=== PATIENT | male | born 1940 | race Caucasian/White ===

== ENCOUNTER → 2017-04-09 | Outpatient (CLI) | payer OTHER ==
[2017-04-09 13:17] LABS: ALT/SGPT 25 U/L (12-78); BLOOD UREA NITROGEN 12 mg/dl (7-18); BUN/CREATININE RATIO 14.2 (10-20); CALCIUM 8.5 mg/dl (8.5-10.1); CARBON DIOXIDE 26 mmol/L (21-32); CHLORIDE 108 mmol/L (98-107); CREATININE 0.88 mg/dl (0.60-1.40); GLUCOSE 91 mg/dl (70-99); POTASSIUM 3.8 mmol/L (3.5-5.1); SODIUM 139 mmol/L (136-145)
[2017-04-09 13:21] LABS: CHOLESTEROL 164 mg/dl (0-200); CHOLESTEROL/HDL RATIO 3.3; HDL CHOLESTEROL 50 mg/dl; LDL CHOLESTEROL CALCULATED 101 mg/dl; TRIGLYCERIDES 66 mg/dl (0-150); VERY LOW DENSITY LIPOPROT CALC 13 mg/dl
== END | disposition home or self-care (01) ==
LOC: C.LABMFLN 10:11
PROVIDERS: ATTEND Family Medicine
DX: I10 Essential (primary) hypertension (principal); Z13.220 Encounter for screening for lipoid disorders

== ENCOUNTER → 2017-05-11 | Outpatient (CLI) | payer OTHER | END | disposition home or self-care (01) | LOC: C.PATHSPEC 12:54 | PROVIDERS: ATTEND Dermatology | DX: C44.619 Basal cell carcinoma of skin of left upper limb, including shoulder (principal); C44.519 Basal cell carcinoma of skin of other part of trunk ==

== ENCOUNTER → 2017-05-11 | Outpatient (CLI) | payer OTHER ==
--- NOTE | 2017-05-11 18:32 | DIAGNOSTIC IMAGING REPORT ---
CHEST 2 VIEWS ROUTINE CLINICAL HISTORY: Possible palpable enlarged lymph node left side of neck. COMPARISON STUDY: No previous studies for comparison. FINDINGS: Lung volumes are normal. There is no pneumothorax. There may be trace bilateral pleural effusions with blunting of the posterior costophrenic angles. A few calcified pulmonary nodules are present. These suggest a prior granulomatous process. Cardiac size is normal. There is no consolidation to suggest pneumonia. Mediastinal contours are unremarkable. IMPRESSION: 1. No acute cardiopulmonary findings. 2. Suspected trace bilateral pleural effusions. Electronically signed by: Shamar Colin M.D. 05/11/2017 6:31 PM Dictated Date/Time: 05/11/2017 6:29 PM
== END | disposition home or self-care (01) ==
LOC: C.LAB 17:54
PROVIDERS: ATTEND Dermatology
DX: R59.9 Enlarged lymph nodes, unspecified (principal)

== ENCOUNTER → 2017-05-28 | Outpatient (CLI) | payer OTHER ==
[~2017-05-28] MED LIST: ASPI81TA28 PO; AUG0.05C12 TOP; CEPH500C2 PO; ENAL10TA88 PO; ENAL5TAB83 PO; FINA5TAB PO; ISOS30TA35 PO; MULTTAB58 PO; NTRGSL/4 UT; OMEG10007 PO; OXYC-57 PO; RST15 PO; SIMV40TA2 PO; TERA1CAP63 PO
[2017-05-28 12:48] LABS: HEMATOCRIT 33.6 % (42-52); HEMOGLOBIN 11.4 g/dL (14.0-18.0)
[2017-05-28 13:27] LABS: BLOOD UREA NITROGEN 15 mg/dl (7-18); CARBON DIOXIDE 26 mmol/L (21-32); CREATININE 0.79 mg/dl (0.60-1.40); GLUCOSE 91 mg/dl (70-99); POTASSIUM 3.6 mmol/L (3.5-5.1); SODIUM 137 mmol/L (136-145)
[2017-05-28 13:32] LABS: LDL CHOLESTEROL (DIRECT) 104 mg/dl
== END | disposition home or self-care (01) ==
LOC: C.LABMFLN 08:17
PROVIDERS: ATTEND Family Medicine
DX: I20.9 Angina pectoris, unspecified (principal); I11.0 Hypertensive heart disease with heart failure; R06.09 Other forms of dyspnea; J90 Pleural effusion, not elsewhere classified

== ENCOUNTER → 2017-06-08 | Outpatient (CLI) | payer OTHER ==
--- NOTE | 2017-06-08 13:14 | DIAGNOSTIC IMAGING REPORT ---
NECK ULTRASOUND CLINICAL HISTORY: Malignant melanoma. COMPARISON STUDY: None. TECHNIQUE: Sonography of the neck at site of palpable abnormality was performed. FINDINGS: Sonography of the left neck at site of palpable abnormality demonstrates a hypoechoic 1.1 x 1 x 1 cm mass which is solid and taller than wide with irregular margins. This contains color flow. IMPRESSION: 1.1 cm hypoechoic left cervical mass which represents the palpable abnormality. The sonographic appearance is worrisome for a neoplastic process, particularly given the clinical history, and ultrasound-guided fine needle aspiration could be performed if indicated. Electronically signed by: Shamar Colin M.D. 06/08/2017 1:13 PM Dictated Date/Time: 06/08/2017 1:08 PM
--- NOTE | 2017-06-08 13:22 | DIAGNOSTIC IMAGING REPORT ---
CT OF THE CHEST WITHOUT IV CONTRAST CLINICAL HISTORY: ARTERIOSCLEROTIC CAD, SUPRACLAVICULAR ADENOPATHY COMPARISON STUDY: Chest radiograph May 11, 2017. CT DOSE: 387.28 mGycm TECHNIQUE: Axial images of the chest were obtained without IV contrast. Images were reviewed in the axial, sagittal, and coronal planes. IV contrast was not administered for this examination. A dose lowering technique was utilized adhering to the principles of ALARA. FINDINGS: No supraclavicular adenopathy is identified on this exam although only the inferior most aspect of the neck was imaged on this exam. There is no axillary, mediastinal or hilar lymphadenopathy. The heart is moderately enlarged. There is extensive coronary artery calcification. There is no pericardial effusion. There is trace pericardial fluid. There are trace bilateral pleural effusions. There is no pneumothorax. There is no consolidation to suggest pneumonia. There are multiple calcified granulomas within the lungs. There are several small noncalcified pulmonary nodules, including a 3 mm left upper lobe nodule shown on image 95 of 296 and a 5 mm left upper lobe nodule shown image 143. A 5 mm left lower lobe subpleural nodule on image 219 is noted. These nodules are likely benign. Bony thorax is unremarkable. Imaged portions of the upper abdomen partially visualize a 6 cm lesion within the upper pole the left kidney. This measures water attenuation and favors a cyst however is is suboptimally assessed on this unenhanced exam. Note is made of a 1.8 cm water attenuation subcutaneous abnormality of the upper back. IMPRESSION: 1. Trace bilateral pleural effusions. No CT evidence of interstitial pulmonary edema. 2. Several small indeterminate noncalcified pulmonary nodules. These could be followed according to the attached recommendations. 3. Moderate cardiomegaly and extensive coronary artery calcification. 4. Partially visualized water attenuation left renal lesion. Although suboptimally assessed on this exam, this favors a cyst. 5. 1.8 cm water attenuation subcutaneous abnormality of the upper back. This favors a sebaceous cyst although postsurgical change could appear similar. SOLID NODULES Solitary nodule size: <6 mm * low risk patients: no follow-up needed * high risk patients: optional CT at 12 months Solitary nodule size: 6-8 mm * low risk patients: follow-up at 6-12 months, then consider further follow-up at 18-24 months * high risk patients: initial follow-up CT at 6-12 months and then at 18-24 months if no change Solitary nodule size: >8 mm * either low or high risk patients - consider follow-up CT at 3 months, and/or CT-PET, and/or biopsy Multiple nodules size: <6 mm * low risk patients: no routine follow-up * high risk patients: optional CT at 12 months Multiple nodules size: 6-8 mm * low risk patients: follow-up at 3-6 months, then consider further follow-up at 18-24 months * high risk patients: follow-up at 3-6 months, then at 18-24 months if no change Multiple nodules size: >8 mm * low risk patients: follow-up at 3-6 months, then consider further follow-up at 18-24 months * high risk patients: follow-up at 3-6 months, then at 18-24 months if no change Note: newly detected indeterminate nodule in persons 35 years of age or older. * low risk patients: minimal or absent history of smoking and/or other known risk factors * high risk patients: history of smoking or of other known risk factors (e.g. first degree relative with lung cancer, or exposure to asbestos, radon, uranium) * if a nodule up to 8 mm is partly solid or is ground glass further follow-up is required after 24 months to exclude possible slow growing adenocarcinoma (RASHEED) Electronically signed by: Shamar Colin M.D. 06/08/2017 1:21 PM Dictated Date/Time: 06/08/2017 11:44 AM
--- NOTE | 2017-06-09 08:11 | EXERCISE STRESS ECHO ---
*NOTICE TO RECEIVING REPUBLICAN AGENCY This information is strictly Confidential and protected under [place] law. [place] law prohibits you from making any further disclosure of this information unless further disclosure is expressly permitted by the written consent of the person to whom it pertains or is authorized by law. A general authorization for the release of medical or other information is not sufficient for this purpose. Hospital accepts no responsibility if the information is made available to any other person, INCLUDING THE PATIENT. Interpretation Summary * Name: ZENAIDA HAMILTON Study Date: 06/08/2017 11:21 AM BP: 103/73 mmHg * Patient Location: [facility] HR: 47 * : 1940 (M/d/yyyy) Gender: Male Height: 57 in * Age: 77 yrs Ethnicity: CA Weight: 177 lb * Ordering Physician: Cristi Harrington * Referring Physician: Padilla Orozco * Performed By: Regi Hector RCS * * Reason For Study: ANGINA * BSA: 1.7 m2 * -- Conclusions -- * Stress Echo: * 1. Negative stress echo for ischemia at 95 % MPHR. * 2. Negative exercise ECG for ischemia at 95 % MPHR. * 3. Appropriate blood pressure response to exercise. * 4. No arrhythmia. * 5. Study terminated due to fatigue. No chest pain reported. * 6. Good exercise tolerance. * Echo: * 1. Normal left ventricular size with low-normal systolic function. EF 50-55%. Hypokinesis of the inferolateral wall. Mild concentric left ventricular hypertrophy. Type 1 diastolic dysfunction. * 2. The left atrium is mildly dilated. * 3. There is mild mitral regurgitation. * 4. Normal estimated right ventricular systolic pressure; 22mmHg. Procedure Details * ECHOEX, CPT #[id number] * ECHO COLOR FLOW, CPT #[id number] * ECHO DOPPLER, CPT #[id number] Left Ventricle * Normal left ventricular size with low-normal systolic function. EF 50-55%. Hypokinesis of the inferolateral wall. Mild concentric left ventricular hypertrophy. Type 1 diastolic dysfunction. * Following exercise, inferolateral wall appears hypokinetic, similar to baseline. Other wall segments appear to augment appropriately. LV systolic function becomes more hyperdynamic with smaller LV cavity. Right Ventricle * The right ventricle is normal in size and function. * The right ventricular systolic function is normal as assessed by tricuspid annular plane systolic excursion (TAPSE) (normal >1.5 cm). Atria * The left atrium is mildly dilated. * Right atrial size is normal. * There is no evidence of atrial septal defect, but resolution does not allow assessment for a patent foramen ovale. Mitral Valve * The mitral valve leaflets appear normal. There is no evidence of stenosis, fluttering, or prolapse. * There is mild mitral regurgitation. Tricuspid Valve * The tricuspid valve is not well visualized, but is grossly normal. * There is no tricuspid stenosis. * There is trace tricuspid regurgitation. Aortic Valve * The aortic valve is trileaflet. * No hemodynamically significant valvular aortic stenosis. * Trace aortic regurgitation. Pulmonic Valve * The pulmonary valve is inadequately visualized, but the Doppler data is adequate for interpretation. * Trace pulmonic valvular regurgitation. Great Vessels * The aortic root is normal size. * Ascending aorta of normal dimension * Normal pulmonary venous flow pattern. Normal IVC size and inspiratory collapse. Pericardium * Trace pericardial effusion. Stress Parameters * Sinus bradycardia at 59 bpm. PVCs in bigeminal pattern. Septal infarct. * Stress ECG: No ST changes. No arrhythmias. * Minor ST elevation in leads V1 and V2, with Q-waves present at baseline. * The stress portion of this study was personally supervised by the undersigned interpreting physician. * Rest heart rate was '47' BPM. * Rest blood pressure was '103/73' * Maximum heart rate achieved was 136 bpm. * Maximum heart rate was 95 % of maximum age-predicted heart rate. * Maximum blood pressure was '150/96' * Total exercise time was '09:23' * Maximum exercise MET level achieved was '10.70' METS * Maximum treadmill speed was '4.20' miles per hour. * Maximum treadmill elevation was '16.00'% grade. * Normal blood pressure response to exercise. * Exercise was terminated due to 'fatigue' MMode 2D Measurements and Calculations IVSd 1.3 cm IVSs 1.6 cm LVIDd 4.9 cm LVIDs 3.4 cm LVPWd 1.2 cm LVPWs 1.6 cm IVS/LVPW 1.1 FS 31.7 % EDV(Teich) 114.9 ml ESV(Teich) 46.5 ml EF(Teich) 59.5 % EDV(cubed) 120.5 ml ESV(cubed) 38.3 ml EF(cubed) 68.2 % % IVS thick 22.1 % % LVPW thick 24.8 % LV mass(C)d 250.6 grams LV mass(C)dI 146.8 grams/m\S\2 LV mass(C)s 199.9 grams LV mass(C)sI 117.1 grams/m\S\2 SV(Teich) 68.4 ml SI(Teich) 40.1 ml/m\S\2 SV(cubed) 82.1 ml SI(cubed) 48.1 ml/m\S\2 Ao root diam 3.3 cm Ao root area 8.8 cm\S\2 ACS 1.9 cm LA dimension 4.5 cm asc Aorta Diam 3.0 cm LA/Ao 1.4 LVOT diam 2.1 cm LVOT area 3.4 cm\S\2 LVAd ap2 40.5 cm\S\2 LVLd ap2 8.7 cm EDV(MOD-sp2) 154.4 ml EDV(sp2-el) 159.4 ml LVAs ap2 25.9 cm\S\2 LVLs ap2 7.7 cm ESV(MOD-sp2) 73.5 ml ESV(sp2-el) 74.1 ml EF(MOD-sp2) 52.4 % EF(sp2-el) 53.5 % SV(MOD-sp2) 80.9 ml SI(MOD-sp2) 47.4 ml/m\S\2 SV(sp2-el) 85.2 ml SI(sp2-el) 49.9 ml/m\S\2 Doppler Measurements and Calculations MV E max delon 65.8 cm/sec MV A max delon 83.0 cm/sec MV E/A 0.79 MV P1/2t max delon 97.5 cm/sec MV P1/2t 78.7 msec MVA(P1/2t) 2.8 cm\S\2 MV dec slope 362.9 cm/sec\S\2 MV dec time 0.21 sec Ao V2 max 145.5 cm/sec Ao max PG 8.5 mmHg Ao max PG (full) 5.5 mmHg MAURISIO(V,A) 2.0 cm\S\2 MAURISIO(V,D) 2.0 cm\S\2 LV V1 max PG 2.9 mmHg LV V1 max 85.7 cm/sec MR max delon 547.0 cm/sec MR max PG 119.7 mmHg PA V2 max 109.6 cm/sec PA max PG 4.8 mmHg PI max delon 164.8 cm/sec PI max PG 10.9 mmHg PI dec slope 88.3 cm/sec\S\2 PI P1/2t 546.8 msec TR max delon 219.1 cm/sec RVSP(TR) 22.2 mmHg RAP systole 3.0 mmHg
== END | disposition home or self-care (01) ==
LOC: C.CPL 10:43
PROVIDERS: ATTEND Internal Medicine Cardiovascular Disease
DX: R59.0 Localized enlarged lymph nodes (principal); E78.5 Hyperlipidemia, unspecified; I25.110 Atherosclerotic heart disease of native coronary artery with unstable angina pectoris; C43.9 Malignant melanoma of skin, unspecified

== ENCOUNTER → 2017-06-16 | Outpatient (CLI) | payer OTHER ==
--- NOTE | 2017-06-16 15:07 | DIAGNOSTIC IMAGING REPORT ---
ULTRASOUND GUIDED FINE NEEDLE ASPIRATION AND CORE BIOPSY OF LEFT SUPRACLAVICULAR PALPABLE LESION CLINICAL HISTORY: Palpable left neck mass. COMPARISON STUDY: Neck ultrasound June 08, 2017. PROCEDURE: Sonography of the left neck demonstrated the palpable 1.1 cm hypoechoic irregular left supraclavicular lesion. This was targeted for biopsy. The risks, benefits and alternatives were discussed with the patient and informed written consent was obtained. The procedure was performed by Dr. Colin following a timeout. Skin was prepped and draped in sterile fashion and local anesthesia was achieved with 1% lidocaine. Under direct ultrasound guidance, 2 25-gauge fine needle aspirations were performed followed by a 22-gauge fine needle aspiration. One 18-gauge core biopsy was obtained. The core sample was only approximately 3 mm in length and therefore was submitted for cell block. Samples were deemed preliminarily adequate by pathology. The patient tolerated the procedure well and no immediate complications were evident. IMPRESSION: Ultrasound guided fine needle aspiration and core biopsy of 1.1 cm left supraclavicular mass. Electronically signed by: Shamar Colin M.D. 06/16/2017 3:05 PM Dictated Date/Time: 06/16/2017 3:02 PM
== END | disposition home or self-care (01) ==
LOC: C.ULTR 13:28
PROVIDERS: ATTEND Otolaryngology
DX: C77.0 Secondary and unspecified malignant neoplasm of lymph nodes of head, face and neck (principal)

== ENCOUNTER 2017-07-02 05:16 | Inpatient (IN) | payer OTHER ==
[2017-06-25 09:40] VITALS: Ht 170.2 cm; Wt 81.8 kg
--- NOTE | 2017-06-25 10:22 | PAT Medication Instructions ---
Service Date Jun 25, 2017. Current Home Medication List Aspirin (Aspirin Ec), 81 MG PO QPM Betamethasone Dipropionate Aug (Diprolene Af), 1 APPLN TOP BID Enalapril (Vasotec), 10 MG PO QAM Finasteride (Proscar), 5 MG PO QAM Isosorbide Mononitrate Ext Rel (Imdur Ext Rel), 1 TAB PO QAM Nitroglycerin (Nitrostat), 0.4 MG UT PRN PRN for chest pain Temazepam (Temazepam), 1 TAB PO HS Terazosin Hcl (Hytrin), 10 MG PO QPM Medication Instructions For Your Scheduled Surgery -Contact your surgeon and machine grainer for instructions for: Aspirin (Aspirin Ec), 81 MG PO QPM -Continue as directed: Nitroglycerin (Nitrostat), 0.4 MG UT PRN PRN for chest pain - Hold the following medications 24 hours prior to surgery: Betamethasone Dipropionate Aug (Diprolene Af), 1 APPLN TOP BID - Hold the following medications the morning of surgery: Enalapril (Vasotec), 10 MG PO QAM - Take the following medications the morning of surgery with a sip of water: Isosorbide Mononitrate Ext Rel (Imdur Ext Rel), 1 TAB PO QAM Finasteride (Proscar), 5 MG PO QAM - Take the following medications as scheduled the night before surgery: Terazosin Hcl (Hytrin), 10 MG PO QPM Temazepam (Temazepam), 1 TAB PO HS If you have any questions please call us at [phone] or [phone] or [phone]
[2017-06-25 12:19] LABS: BASO % 0.8 %; BASO ABS # 0.04 K/uL (0-0.2); EOS % 3.2 %; EOS ABS # 0.17 K/uL (0-0.5); HEMATOCRIT 33.5 % (42-52); HEMOGLOBIN 11.2 g/dL (14.0-18.0); LYMPH ABS # 1.33 K/uL (1.2-3.4); MEAN CELL VOLUME 85.9 fL (80-100); MEAN CORPUSCULAR HEMOGLOBIN 28.7 pg (25-34); MEAN CORPUSCULAR HGB CONC 33.4 g/dl (32-36); MEAN PLATELET VOLUME 10.2 fL (7.4-10.4); MONO ABS # 0.48 K/uL (0.11-0.59); NEUT ABS # 3.29 K/uL (1.4-6.5); PLATELET COUNT 237 K/uL (130-400); RED CELL DISTRIBUTION WIDTH CV 15.1 % (11.5-14.5); RED CELL DISTRIBUTION WIDTH SD 46.9 fL (36.4-46.3); WHITE BLOOD COUNT 5.31 K/uL (4.8-10.8)
--- NOTE | 2017-07-01 14:54 | History and Physical ---
History & Physical Date Jul 01, 2017. Chief Complaint A lump in the left neck History of Present Illness The patient is a 77 year old male with complaints of a long history of basal cell carcinoma of the left shoulder confirmed on biopsy with persistent ulceration for 3 years and now with a mass in the left lower posterior neck that showed metastatic basal cell carcinoma on needle biopsy Additional History Hepatic Disease: No Endocrine Disorder: No Kidney Disease: No Hypertension: Yes Heart Disease: No Bleeding Tendencies: No Infectious Diseases: No Allergies Coded Allergies: No Known Allergies (Unverified , 06/25/17) Home Medications Scheduled Aspirin (Aspirin Ec), 81 MG PO QPM Betamethasone Dipropionate Aug (Diprolene Af), 1 APPLN TOP BID Enalapril (Vasotec), 10 MG PO QAM Finasteride (Proscar), 5 MG PO QAM Isosorbide Mononitrate Ext Rel (Imdur Ext Rel), 1 TAB PO QAM Temazepam (Temazepam), 1 TAB PO HS Terazosin Hcl (Hytrin), 10 MG PO QPM Scheduled PRN Nitroglycerin (Nitrostat), 0.4 MG UT PRN PRN for chest pain Physical Examination Skin: warm/dry, no rash Eyes: normal inspection, EOMI, sclerae normal ENT: normal ENT inspection, pharynx normal Head: normocephalic, atraumatic Neck: supple, no adenopathy, trachea midline, + pertinent finding (1 cm semi- fixed mass left posterior inferior neck with a large 3 cm ulcerative lesion over the left shoulder) Respiratory/Chest: lungs clear, normal breath sounds, no respiratory distress Cardiovascular: regular rate, rhythm, no edema, no murmur Abdomen / GI: normal bowel sounds, non tender Back: normal inspection Extremities: normal inspection, normal range of motion Neurologic/Psych: no motor/sensory deficits, alert, normal reflexes, oriented x 3 Diagnosis Metastatic basal cell carcinoma from left shoulder to the left neck Plan of Treatment Excision of basal cell carcinoma with frozen section and left functional neck dissection with possible skin flap
[~2017-07-02] VITALS: Ht 170.2 cm; Wt 81.8 kg
[2017-07-02] VITALS (9 sets, daily range): BP systolic 134–161; BP diastolic 57–77; PULSE 51–83; TEMP 36.4–36.9; O2SAT 92–97
[~2017-07-02 05:16] MED LIST changes: -CEPH500C2 PO; -ENAL5TAB83 PO; -MULTTAB58 PO; -OMEG10007 PO; -OXYC-57 PO; -SIMV40TA2 PO
[2017-07-02] MEDS ORDERED: SIMV40TA2 PO (05:55)
[2017-07-02] MEDS ORDERED: CEFAZOLIN 2000MG IV PUSH 10 ML IV SCH (06:00)
[2017-07-02] MEDS ORDERED: LACTATED RINGER'S 1000ML 1,000 ML IV SCH (06:00)
[2017-07-02] MEDS ORDERED: MIDAZOLAM HCL 1 MG/ML 2ML VIAL ONE (07:02)
[2017-07-02] MEDS ORDERED: FENTANYL CITRATE INJ 50 MCG/1 ML 2 ML VIAL ONE ×3 (07:02→10:26)
--- NOTE | 2017-07-02 07:08 | History & Physical Bridge Note ---
H&P Re-Evaluation Bridge Note: I have examined the patient, reviewed the History & Physical and in the interval since the performance of the History & Physical I have noted the following changes of clinical significance: No changes noted
[2017-07-02] MEDS ORDERED: LIDO 2%/EPINEPHRINE 1:100000 20 ML VIAL INFIL ONE (07:16)
[2017-07-02] MEDS ORDERED: BACITRACIN OINT 15 GM TUBE ONE (07:16)
[2017-07-02] MEDS ORDERED: EpHEDrine SULFATE 50MG/5ML SYR ONE (08:05)
[2017-07-02] MEDS ORDERED: PHENYLEPHRINE 100MCG/ML 5ML SYR ONE ×2 (08:05→10:48)
[2017-07-02] MEDS ORDERED: LIDOCAINE HCL 2% 2 ML VIAL (20MG/ML) ONE (08:05)
[2017-07-02] MEDS ORDERED: PROPOFOL IV EMULSION 10 MG/ML 20 ML VIAL IV ONE (08:05)
[2017-07-02] MEDS ORDERED: NEOSTIGMINE METHYLSULFATE 5 MG/5 ML SYR ONE (08:05)
[2017-07-02] MEDS ORDERED: GLYCOPYRROLATE INJ 0.2 MG/ML VIAL ONE (08:05)
[2017-07-02] MEDS ORDERED: DEXAMETHASONE SOD INJ 4 MG/ML VIAL ONE (08:05)
[2017-07-02] MEDS ORDERED: ONDANSETRON INJ 2 MG/ML 2 ML VIAL ONE (08:05)
[2017-07-02] MEDS ORDERED: ROCURONIUM BROMIDE 10 MG/ML 5 ML VIAL IV ONE (08:05)
[2017-07-02] MEDS ORDERED: ONDANSETRON INJ 2 MG/ML 2 ML VIAL IV PRN ×2 (10:00→12:30)
[2017-07-02] MEDS ORDERED: FLUMAZENIL 0.1 MG/1 ML 10 ML VIAL IV PRN (10:00)
[2017-07-02] MEDS ORDERED: ATROPINE SULFATE 0.1 MG/ML 5ML SYR IV PRN (10:00)
[2017-07-02] MEDS ORDERED: EpHEDrine SULFATE INJ 50 MG/ML AMP IV PRN (10:00)
[2017-07-02] MEDS ORDERED: LABETALOL HCL IV 5 MG/ML 20ML IV PRN (10:00)
[2017-07-02] MEDS ORDERED: PROMETHAZINE HCL INJ 12.5 MG in SODIUM CHLORIDE 0.9% 50ML 50 ML IV PRN (10:00)
[2017-07-02] MEDS ORDERED: HYDROmorphone INJ 1 MG/ML SYR IV PRN (10:00)
[2017-07-02] MEDS ORDERED: NALOXONE HCL 0.4 MG/1 ML VIAL/CARP IV PRN (10:00)
[2017-07-02] MEDS ORDERED: CEFAZOLIN SOD 1 GM VIAL ONE (11:08)
--- NOTE | 2017-07-02 11:54 | [facility] Post Operative Brief Note ---
Immediate Operative Summary Operative Date Jul 02, 2017. Pre-Operative Diagnosis Metastatic basal cell carcinoma from left shoulder to left neck Post-Operative Diagnosis same as preop Procedure(s) Performed Excision Basal Cell Carcinoma Left Shoulder, Rotate Skin Flap, Left Functional Neck Dissection with Removal of Lump and Lymph Node of Left Neck Surgeon Dr. Florez Electrical Equipment Assembler Surgeon(s) none Estimated Blood Loss 15 ml Findings Consistent with Post-Op Diagnosis Specimens Frozen specimen 1- Basal cell carcinoma plus level 4 nodes- instructions to check margins. Sent from room at 1110 A: Level 1,2,3 nodes, left side B: Supraclavicular node, left side Drains 7mm Victorino Nettles Anesthesia Type General Complication(s) none Disposition Accompanied Pt To Recovery: yes Disposition: Recovery Room / PACU
[2017-07-02] MEDS ORDERED: MoRPHine SULFATE 4 MG/ML 1 ML CARP\\VIAL IV PRN (12:30)
[2017-07-02] MEDS ORDERED: ACETAMINOPHEN 325 MG TAB PO PRN (12:30)
[2017-07-02] MEDS ORDERED: MoRPHine SULFATE 2 MG/ML CARP IV PRN ×2 (12:30)
[2017-07-02] MEDS ORDERED: OXYCODONE/ACETAMINOPHEN 5-325 TAB PO PRN ×2 (12:30)
--- NOTE | 2017-07-02 12:33 | [facility] Operative Report ---
Operative Report Operative Date Jul 02, 2017. Pre-Operative Diagnosis Metastatic basal cell carcinoma from left shoulder to left neck Post-Operative Diagnosis same as preop Procedure(s) Performed Excision Basal Cell Carcinoma Left Shoulder, Rotate Skin Flap, Left Functional Neck Dissection with Removal of Lump and Lymph Node of Left Neck Surgeon Dr. Florez City Comptroller Surgeon(s) none Estimated Blood Loss 15 ml Findings Arm fixed node left neck, large ulceration left shoulder Specimens Frozen specimen 1- Basal cell carcinoma plus level 4 nodes- instructions to check margins. Sent from room at 1110 A: Level 1,2,3 nodes, left side B: Supraclavicular node, left side Drains 7mm Victorino Nettles Anesthesia Type General Complication(s) none Disposition yes Recovery Room / PACU Indications 77-year-old gentleman with over 3 year history of ulceration left shoulder which was excised initially but recurred and has been there for at least a year and then he developed the lymph node in the left neck which felt to be firm and fixed, his needle biopsy showed basal cell carcinoma Description of Procedure Procedure the patient was brought to the operating room placed in the supine position with the neck hyper extended and prepped with ChloraPrep and draped in the usual sterile manner. The incision was a Schobinger type radical neck excision extending from the mastoid tip anteriorly following the sternocleidomastoid to the clavicle and then curving posteriorly along the supraclavicular fossa onto the left shoulder connecting this with the excision around the area of ulceration on the left shoulder. The incision was made using #10 blade and the skin flaps were elevated using the 15 blade and the Metzenbaum scissors, elevating the skin flap superiorly anteriorly posteriorly and inferiorly. Posterior dissection was started along the trapezius muscle behind the 6 node going superiorly and inferiorly along the trapezius muscle finding the spinal accessory nerve at Erb's point and following the spinal accessory nerve superiorly and inferiorly into the trapezius muscle. Submandibular dissection was then performed extending posteriorly to the jugular vein, again identifying the hypoglossal nerve and the spinal accessory nerve. Preserving the structures. But excising the jugular nodes and the submandibular nodes preserving the submandibular gland. The dissection was then continued along the jugular vein and along the carotid sheath anteriorly following the omohyoid inferiorly removing the level 1-3 nodes along the jugular vein and the carotid sheath clamping dividing and tying multiple vessels including the posterior facial vein and the superior thyroidal vein with 3-0 silk ties. The sternocleidomastoid was then freed from both sides dissecting the fascia from the lateral and also from the medial surface of the sternocleidomastoid muscle and then connecting this to the posterior neck dissection with the level IV and 5 nodes preserving the jugular vein inferiorly along with the vagus nerve and the phrenic nerves. Supraclavicular dissection was then performed following the transverse cervical vessels laterally this was connected to the posterior neck dissection keeping these nodes connected to the ulceration on the left shoulder which was excised in continuity with the generous 1 cm 1-1/2 cm around the ulceration including the subcutaneous fat to the supra-splinatus muscle. This was all excised in continuity and sent for frozen section which showed the margins to be clear. A rhomboid rotation flap was incised posterior to the area of the excision from the trapezius area and the flap was rotated anteriorly into the defect. A 7 mm Victorino-Nettles drain was placed in the depth of the wound exiting in the supraclavicular area. The incision was closed in layers with interrupted 2-0 Vicryl sutures on the platysma layer, interrupted 2-0 Vicryl sutures on the subcutaneous layer and then jose luis on the skin a light pressure dressing was placed and the patient her procedure well and was taken to the recovery area in satisfactory condition I attest to the content of the Intraoperative Record and any orders documented therein. Any exceptions are noted below.
--- NOTE | 2017-07-02 13:28 | Anesthesiology Progress Note ---
Anesthesia Post Op Note Date & Time Jul 02, 2017 at 13:27 Vital Signs Pain Intensity: 0 Vital Signs Past 12 Hours Date Time Temp Pulse Resp B/P (MAP) Pulse Ox O2 Delivery O2 Flow Rate FiO2 18 13:23 77 17 2/2/18 13:23 77 17 98 2/2/18 13:21 123/62 2/2/18 13:18 75 22 2/2/18 13:18 74 22 96 2/2/18 13:16 132/65 2/2/18 13:13 79 19 97 2/2/18 13:13 79 19 2/2/18 13:11 123/68 2/2/18 13:08 75 17 2/2/18 13:08 75 17 96 2/2/18 13:06 135/65 2/2/18 13:03 83 17 2/2/18 13:03 83 17 97 2/2/18 13:01 132/68 2/2/18 12:58 72 12 97 2/2/18 12:58 72 12 2/18 12:56 135/64 2/2/18 12:53 80 16 2/2/18 12:53 79 16 97 2/2/18 12:52 79 13 98 /2/18 12:52 80 13 /2/18 12:51 128/72 2/2/18 12:50 36.8 82 15 128/72 98 Nasal Cannula 3 18 12:47 78 15 98 2/2/18 12:47 80 15 2/2/18 12:46 144/73 2/2/18 12:42 82 16 2/2/18 12:42 78 16 96 2/2/18 12:41 145/69 2/2/18 12:37 83 19 2/2/18 12:37 77 19 96 2/2/18 12:36 135/74 2/2/18 12:32 76 19 97 2/2/18 12:32 78 19 2/2/18 12:31 138/74 2/2/18 12:27 80 18 2/2/18 12:27 78 16 98 2/2/18 12:26 80 12 2/2/18 12:26 80 12 130/70 99 2/2/18 12:21 83 9 138/72 100 2/2/18 12:21 83 9 2/2/18 12:16 80 17 07/02/17 12:16 83 17 140/67 100 07/02/17 12:11 85 20 139/66 100 07/02/17 12:11 83 20 07/02/17 12:07 132/64 07/02/17 12:06 36.6 85 16 132/64 95 Oxymask 10 07/02/17 06:01 36.4 51 18 161/68 (99) 96 Room Air Notes Mental Status: alert / awake / arousable, participated in evaluation Pt Amnestic to Procedure: Yes Nausea / Vomiting: adequately controlled Pain: adequately controlled Airway Patency, RR, SpO2: stable & adequate BP & HR: stable & adequate Hydration State: stable & adequate Anesthetic Complications: no major complications apparent
[2017-07-02] MEDS: D5W AND 1/2NSS + 20MEQ KCL 1,000 ML IV SCH (14:45)
[2017-07-03] MEDS: D5W AND 1/2NSS + 20MEQ KCL 1,000 ML IV SCH ×2 (00:15→10:45)
[2017-07-03 03:21] VITALS: BP 189/97; PULSE 64; TEMP 36.8; O2SAT 96
[2017-07-03 06:37] VITALS: BP 174/73
[2017-07-03 07:15] VITALS: BP 183/66; PULSE 68; TEMP 36.9; O2SAT 96
[2017-07-03] MEDS ORDERED: OXYC-57 PO (09:54)
--- NOTE | 2017-07-03 09:55 | Discharge Instructions ---
Discharge Instructions Date of Service Jul 03, 2017. Admission Reason for Admission: Basal Cell Carcinoma, Left Shoulder And Neck Discharge Discharge Diagnosis / Problem: same Discharge Goals Goal(s): Therapeutic intervention Activity Recommendations Activity Limitations: per Instructions/Follow-up section . Instructions / Follow-Up Instructions / Follow-Up ACTIVITY: Most patients are able to return to a full-time work schedule in 1 week; however this may vary according to your job. It may take longer to return to heavy physical or other demanding work, or shorter if you are feeling well. Do NOT drive a car until you are able to turn the neck side to side, which may take 1-[address] while you are taking pain medicines. DIET: You may have temporary throat discomfort or difficulty swallowing. This is due to the surgery around your larynx (voice box) and esophagus (swallowing tube). These symptoms will gradually improve over the course of several weeks. Drink and eat foods that can be swallowed easily, e.g. juice, soup, gelatin, applesauce, scrambled eggs or mashed potatoes. You may be able to return to your usual diet in a couple of days. INCISION CARE: You may shower 24 hours after surgery but please do not swim or soak in a tub for at least 2 weeks. After you are done showering, just pat your incision dry. If it is draining clear fluid, you can cover it with a dry dressing (such as gauze). Do NOT scrub with soap or washcloth for the first 10 days. Mild swelling at the incision site will go away in 4-6 weeks. The pink line will slowly fade to white during the next 6-12 months. Use a sunscreen (SPF#30 or higher) or wear a scarf for protection if in the sun for the first 6 months to a year as the sun can darken your scar. You may begin to use a hypoallergenic moisturizing cream (no vitamin E, Mederma , or other scar creams) along the incision after 2 weeks. COMMON PROBLEMS: Numbness of the skin under the chin or above the incision is normal and should go away in a few weeks. You may feel a lump or pressure in your throat sensation when swallowing for a few days. Your incision may feel itchy while it heals. Avoid rubbing or scratching if possible. You may feel neck stiffness, tightness or a pulling feeling. Some people prefer to sleep with an extra pillow for the first few days after the surgery, this helps keep swelling around your incision to a minimum. Your voice may be hoarse or weak. Pitch or tone may change. You may have difficulty singing. This usually goes back to normal over 6 weeks to 6 months. After surgery, you may notice a change in your mood, emotional ups and downs, depression, irritability or fatigue and weakness. These changes will get better as time passes. You do not need to be at bed rest, being active is normally well tolerated within reason. CALL YOUR DOCTOR IF: For any non-urgent questions, call Dr. Castro office [phone] or the nursing unit where you were a patient. Call Dr. Florez [phone] or go to the Emergency Room if you have fever ( temperature greater than 100.5), chills, lightheadedness, shortness of breath, difficulty breathing, nausea, vomiting, numbness or tingling in your fingers, hands, or mouth, muscle spasms, or if you notice signs of wound infection ( redness, tenderness, or drainage from the incision). Please also call or go to the Emergency Room if you have any other urgent concerns. FOLLOW UP VISIT: Follow-up visit with Dr. Florez. Please call to schedule if not already scheduled. Current Hospital Diet Patient's current hospital diet: Regular Diet Discharge Diet Recommended Diet: Regular Diet Procedures Procedures Performed: Excision Basal Cell Carcinoma Left Shoulder, Rotate Skin Flap, Left Functional Neck Dissection with Removal of Lump and Lymph Node of Left Neck Pending Studies Studies pending at discharge: yes List of pending studies: pathology Laboratory Results Lipid Panel Test 04/09/17 10:24 Range/Units Triglycerides Level 66 0-150 mg/dl Cholesterol Level 164 0-200 mg/dl HDL Cholesterol 50 mg/dl Cholesterol/HDL Ratio 3.3 LDL Cholesterol, Calculated 101 mg/dl Medical Emergencies . Who to Call and When: Medical Emergencies: If at any time you feel your situation is an emergency, please call 911 immediately. . Non-Emergent Contact Non-Emergency issues call your: Primary Care Provider . "Provider Documentation" section prepared by Nanette Florez. . VTE Core Measure Inpt VTE Proph given/why not?: SCD's [place] Drug Monitoring Program Search Results: no issues identified
[2017-07-03] MEDS ORDERED: NITROGLYCERIN 0.4 MG SL PER TAB CHARGE UT PRN (10:00)
[2017-07-03] MEDS ORDERED: OXYCODONE/ACETAMINOPHEN 5-325 TAB PO PRN (10:00)
[2017-07-03 11:13] VITALS: BP 183/66; PULSE 68; TEMP 36.9; O2SAT 96
[2017-07-03 11:25] VITALS: BP 161/76; PULSE 53; TEMP 36.7; O2SAT 97
[2017-07-03] MEDS ORDERED: BACITRACIN OINT 15 GM TUBE EXT SCH (12:00)
[2017-07-03] MEDS ORDERED: ASPIRIN 81 MG ECTAB PO SCH (21:00)
[2017-07-03] MEDS ORDERED: TEMAZEPAM 15 MG CAP PO SCH (21:00)
[2017-07-03] MEDS ORDERED: SIMVASTATIN 40 MG TAB PO SCH (21:00)
[2017-07-03] MEDS ORDERED: BETAMETHASONE DIP AUG (DIPROLENE) 0.05% CR 15 GM TUBE EXT SCH (21:00)
[2017-07-04] MEDS ORDERED: ISOSORBIDE MONONITRATE 30 MG TABCR PO SCH (09:00)
[2017-07-04] MEDS ORDERED: FINASTERIDE 5 MG TAB PO SCH (09:00)
[2017-07-04] MEDS ORDERED: ENALAPRIL MALEATE 10 MG TAB PO SCH (09:00)
== END 2017-07-03 12:33 | disposition home or self-care (01) | DRG 578 ==
LOC: C.ACU 05:16 → C.MSN 05:30 → ENRESERV 13:09
PROVIDERS: ADMIT Otolaryngology; ATTEND Otolaryngology
PROC: 07B20ZZ Excision of Left Neck Lymphatic, Open Approach (ICD-10-PCS; principal; 2017-07-02 07:15)
PROC: 0HXCXZZ Transfer Left Upper Arm Skin, External Approach (ICD-10-PCS; principal; 2017-07-02 07:15)
PROC: 0HBCXZZ Excision of Left Upper Arm Skin, External Approach (ICD-10-PCS; principal; 2017-07-02 07:15)
DX: C44.41 Basal cell carcinoma of skin of scalp and neck (principal); C44.619 Basal cell carcinoma of skin of left upper limb, including shoulder; R59.0 Localized enlarged lymph nodes; Z79.82 Long term (current) use of aspirin; Z79.899 Other long term (current) drug therapy

== ENCOUNTER → 2017-07-19 | Outpatient (CLI) | payer OTHER ==
[~2017-07-19] MED LIST changes: +ENAL5TAB83 PO; +MULTTAB58 PO; +OMEG10007 PO; +OXYC-57 PO; +SIMV40TA2 PO
--- NOTE | 2017-07-19 11:30 | DIAGNOSTIC IMAGING REPORT ---
PET/CT CLINICAL HISTORY: Head and neck cancer. Basal cell carcinoma. History of liv dissection in the left neck. COMPARISON STUDY: CT of the chest dated 06/08/2017. Ultrasound of the neck dated 06/08/2017. TECHNIQUE: One hour following the IV administration of 12.75 mCi of F-18 FDG, PET/CT examination was performed from the vertex through the bony pelvis. Noncontrast CT is performed for the purposes of anatomic correlation and attenuation correction. Note that this does not reflect a diagnostic CT examination. Images were reviewed on a separate [employer] independent workstation. Fused images were obtained. Standard uptake values reported are maximum values within the region of interest expressed in gm/mL. FINDINGS: PET FINDINGS: Head and neck: There is expected physiologic activity within the brain parenchyma and the salivary glands. There is an approximate 5.5 x 8.5 x 3.5 cm water attenuation fluid collection identified in the left lower neck and deep to the sternocleidomastoid muscle. This lesion was not demonstrably FDG avid. There is induration in the overlying soft tissues of the left neck. This demonstrates a maximum SUV of 2.8. Thorax: Evaluation of the thorax demonstrates expected physiologic myocardial activity. Scattered pulmonary nodules measure up to 3 mm. These are too small for PET characterization. Abdomen and pelvis: There is expected activity within the liver, spleen, kidneys, renal collecting system, and bladder. Low-level bowel activity is likely within physical limits. Unenhanced CT images: The brain parenchyma is normal as visualized. Mucosal thickening is seen within the left ethmoid sinuses and the left maxillary sinus. Remaining paranasal sinuses are clear. The mastoid air cells are well pneumatized. The bony orbits are intact. Orbital contents are normal in appearance. The salivary and thyroid glands are normal in appearance. There is mild atherosclerotic calcification of the thoracic aorta which is normal in caliber. The heart is enlarged and there is trace pericardial effusion. The coronary arteries are densely calcified. There is no airspace consolidation typical for pneumonia. Small pleural effusions are noted. There are scattered calcified granulomas. No mediastinal, hilar, or axillary lymphadenopathy is identified. The unenhanced liver, gallbladder, spleen, adrenal glands, and pancreas are grossly unremarkable. The kidneys are atrophic and without hydronephrosis. There are numerous bilateral renal cysts which measure up to 7.3 cm. A 4 mm nonobstructing calculus is seen in the left kidney. The abdominal aorta is normal in caliber noting advanced atherosclerotic calcification. No bowel obstruction is seen. A normal appendix is identified. There is moderate colonic fecal retention. No intraperitoneal free air or abdominal ascites is seen. There is no abdominal, retroperitoneal, pelvic sidewall, or inguinal lymphadenopathy. The prostate is enlarged and there is median lobe hypertrophy. The bladder is normal as imaged. The skeletal structures are osteopenic. No lytic or blastic lesion is seen. Degenerative change is present throughout the spine. IMPRESSION: 1. There is no convincing evidence of FDG avid metastatic disease. 2. There is an approximately 8.5 cm water attenuation fluid collection at the left neck. This was not FDG avid and is likely related to recent surgery. 3. Mild induration is seen within the soft tissues of the left neck. This is minimally FDG avid and also likely related to recent surgery. 4. Small pleural effusions. 5. Cardiomegaly. 6. Tiny pulmonary nodules measuring up to 3 mm are too small for PET characterization. 7. Additional findings as above. Electronically signed by: Raleigh Baumann M.D. 07/19/2017 11:28 AM Dictated Date/Time: 07/19/2017 11:14 AM
== END | disposition home or self-care (01) ==
LOC: C.PET 08:34
PROVIDERS: ATTEND Otolaryngology
DX: R22.0 Localized swelling, mass and lump, head (principal); C80.1 Malignant (primary) neoplasm, unspecified

== ENCOUNTER → 2017-08-10 | Outpatient (CLI) | payer OTHER ==
[~2017-08-10] MED LIST changes: +CEPH500C2 PO; -SIMV40TA2 PO
[2017-08-10 13:07] LABS: ALT/SGPT 37 U/L (12-78); AST/SGOT 22 U/L (15-37)
== END | disposition home or self-care (01) ==
LOC: C.LABMFLN 10:16
PROVIDERS: ATTEND Physician Assistant
DX: I25.10 Atherosclerotic heart disease of native coronary artery without angina pectoris (principal)

== ENCOUNTER → 2017-08-11 | Outpatient (CLI) | payer OTHER | END | disposition home or self-care (01) | LOC: C.LABSPEC 17:05 | PROVIDERS: ATTEND Otolaryngology | DX: L02.11 Cutaneous abscess of neck (principal) ==

== ENCOUNTER → 2017-08-12 | Day surgery (SDC) | payer OTHER ==
--- NOTE | 2017-08-11 16:55 | History and Physical: Surg Cnt ---
History & Physical Date Aug 11, 2017. Chief Complaint left neck swelling History of Present Illness The patient is a 77 year old male with complaints of left neck abcess vs. 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 Additional History Hepatic Disease: No Endocrine Disorder: No Kidney Disease: No Hypertension: Yes Heart Disease: No Bleeding Tendencies: No Infectious Diseases: No Allergies Coded Allergies: No Known Allergies (Unverified , 07/02/17) Home Medications Scheduled Aspirin (Aspirin Ec), 81 MG PO QPM Betamethasone Dipropionate Aug (Diprolene Af), 1 APPLN TOP BID Enalapril (Vasotec), 10 MG PO HS Enalapril (Vasotec), 5 MG PO DAILY Finasteride (Proscar), 5 MG PO QAM Fish Oil (Shelbiana-3), 1 CAP PO DAILY Isosorbide Mononitrate Ext Rel (Imdur Ext Rel), 1 TAB PO QAM Multiple Vitamin (Multivitamin), 1 TAB PO DAILY Temazepam (Temazepam), 1 TAB PO HS Terazosin Hcl (Hytrin), 10 MG PO QPM Scheduled PRN Nitroglycerin (Nitrostat), 0.4 MG UT PRN PRN for chest pain Oxycodone/Acetaminophen 5MG/325MG (Percocet 5MG/325MG), 2 TAB PO Q4H PRN for severe pain (pain scale 7-10) Physical Examination Skin: warm/dry, no rash Eyes: normal inspection, EOMI, sclerae normal ENT: normal ENT inspection, pharynx normal Head: normocephalic, atraumatic Neck: + pertinent finding (swelling left supraclavicular area, fluctuant) Diagnosis left neck abcess vs. chyle leak Plan of Treatment Incision and drainage, left neck
[~2017-08-12] VITALS: Ht 170.2 cm; Wt 82.4 kg
[~2017-08-12] MED LIST changes: +CEFAZOLIN 1000MG IV PUSH 7.5 ML IV SCH; +CEFAZOLIN 2000MG IV PUSH 15 ML IV SCH; +LACTATED RINGER'S 1000ML 1,000 ML IV SCH; +LIDO 2%/EPINEPHRINE 1:100000 20 ML VIAL INFIL ONE; +OXYCODONE/ACETAMINOPHEN 5-325 TAB PO PRN; +PATIENT'S HEIGHT AND/OR WEIGHT NEEDED SCH; +SODIUM CHLORIDE 0.9% 1000ML 1,000 ML IV SCH
[2017-08-12 08:12] VITALS: Ht 170.2 cm; Wt 82.4 kg
--- NOTE | 2017-08-12 11:06 | History & Physical Bridge Note ---
H&P Re-Evaluation Bridge Note: I have examined the patient, reviewed the History & Physical and in the interval since the performance of the History & Physical I have noted the following changes of clinical significance: ASA 2. No changes noted
--- NOTE | 2017-08-12 11:56 | [facility] Post Operative Brief Note ---
Immediate Operative Summary Operative Date Aug 12, 2017. Pre-Operative Diagnosis Left Neck Abscess Post-Operative Diagnosis same Procedure(s) Performed Left Neck Incision And Drainage Of Abscess Surgeon Dr. Norma Florez Manager Implementation Surgeon(s) 0 Estimated Blood Loss 5CC Findings Consistent with Post-Op Diagnosis Specimens none Drains lars ngo Anesthesia Type Local Complication(s) none Disposition Accompanied Pt To Recovery: yes Disposition:
[2017-08-12 12:07] VITALS: TEMP 36.7
--- NOTE | 2017-08-12 12:23 | [facility] Operative Report ---
Operative Report Operative Date Aug 12, 2017. Pre-Operative Diagnosis Left Neck Abscess Post-Operative Diagnosis same Procedure(s) Performed Left Neck Incision And Drainage Of Abscess Surgeon Dr. Norma Florez Literacy Teacher Surgeon(s) 0 Estimated Blood Loss 5CC Specimens none Drains lars ngo Anesthesia Type Local Complication(s) none Disposition yes Indications 77-year-old male who underwent left radical neck dissection 5 weeks ago developed acute swelling of the left neck since this past Wednesday. Description of Procedure The patient was brought to the operating room placed in the supine position. He was awake. Betadine prep and local injection of 2% Xylocaine with 1-100,000 strength epinephrine was used. He was draped in the usual sterile manner. The incision was made using a #15 blade over the abscess cavity and copious amounts of purulent fluid was evacuated totaling approximately 40-50 cc. The #10 Lars-Ngo drain was cut to 7 cm and was placed into the I&D site and sewn in place with interrupted and continuous 4-0 Prolene sutures. The patient tired procedure well and was taken recovery area in satisfactory condition. I attest to the content of the Intraoperative Record and any orders documented therein. Any exceptions are noted below.
--- NOTE | 2017-08-12 12:28 | Discharge Instructions-SurgCtr ---
Discharge Instructions Date of Service Aug 12, 2017. Visit Reason for Visit: Left Neck Abscess Discharge Discharge Diagnosis / Problem: same Discharge Goals Goal(s): Therapeutic intervention Activity Recommendations Activity Limitations: per Instructions/Follow-up section Anesthesia . Post Anesthesia Instructions: If you have had General Anesthesia or IV Sedation: * Do not drive today. * Resume driving when surgeon permits. * Do not make important decisions or sign legal documents today. * Call surgeon for: 1. Temperature elevations greater than 101 degrees F. 2. Uncontrollable pain. 3. Excessive bleeding. 4. Persistent nausea and vomiting. 5. Medication intolerance (nausea, vomiting or rash). * For nausea and vomiting use only clear liquids such as: tea, soda, bouillon until nausea subsides, then gradually increase diet as tolerated. * If you have any concerns or questions, call your surgeon's office. If physician is unavailable and it is an emergency, call 911 or go to the nearest emergency room. . Instructions / Follow-Up Instructions / Follow-Up ACTIVITY: Most patients are able to return to a full-time work schedule in 1 week; however this may vary according to your job. It may take longer to return to heavy physical or other demanding work, or shorter if you are feeling well. Do NOT drive while you are taking pain medicines. DIET: You may have temporary throat discomfort or difficulty swallowing. This is due to the surgery around your larynx (voice box) and esophagus (swallowing tube). These symptoms will gradually improve over the course of several weeks. Drink and eat foods that can be swallowed easily, e.g. juice, soup, gelatin, applesauce, scrambled eggs or mashed potatoes. You may be able to return to your usual diet in a couple of days. INCISION CARE: You may shower 24 hours after surgery but please do not swim or soak in a tub for at least 2 weeks. After you are done showering, just pat your incision dry. If it is draining clear fluid, you can cover it with a dry dressing (such as gauze). Do NOT scrub with soap or washcloth for the first 10 days. Mild swelling at the incision site will go away in 4-6 weeks. The pink line will slowly fade to white during the next 6-12 months. Use a sunscreen (SPF#30 or higher) or wear a scarf for protection if in the sun for the first 6 months to a year as the sun can darken your scar. You may begin to use a hypoallergenic moisturizing cream (no vitamin E, Mederma , or other scar creams) along the incision after 2 weeks. COMMON PROBLEMS: Numbness of the skin under the chin or above the incision is normal and should go away in a few weeks. You may feel a lump or pressure in your throat sensation when swallowing for a few days. Your incision may feel itchy while it heals. Avoid rubbing or scratching if possible. You may feel neck stiffness, tightness or a pulling feeling. Some people prefer to sleep with an extra pillow for the first few days after the surgery, this helps keep swelling around your incision to a minimum. Your voice may be hoarse or weak. Pitch or tone may change. You may have difficulty singing. This usually goes back to normal over 6 weeks to 6 months. After surgery, you may notice a change in your mood, emotional ups and downs, depression, irritability or fatigue and weakness. These changes will get better as time passes. You do not need to be at bed rest, being active is normally well tolerated within reason. CALL YOUR DOCTOR IF: For any non-urgent questions, call Dr. Castro office [phone] or the nursing unit where you were a patient. Call Dr. Florez [phone] or go to the Emergency Room if you have fever ( temperature greater than 100.5), chills, lightheadedness, shortness of breath, difficulty breathing, nausea, vomiting, numbness or tingling in your fingers, hands, or mouth, muscle spasms, or if you notice signs of wound infection ( redness, tenderness, or drainage from the incision). Please also call or go to the Emergency Room if you have any other urgent concerns. FOLLOW UP VISIT: Follow-up visit with Dr. Florez. Please call to schedule if not already scheduled. Diet Recommendations Home Diet: no limitations Procedures Procedures Performed: Left Neck Incision And Drainage Of Abscess Pending Studies Studies pending at discharge: no Medical Emergencies . Who to Call and When: Medical Emergencies: If at any time you feel your situation is an emergency, please call [phone] immediately. . Non-Emergent Contact Non-Emergency issues call your: Primary Care Provider . . "Provider Documentation" section prepared by Nanette Lester [place] Drug Monitoring Program Search Results: no issues identified
[2017-08-12 12:55] VITALS: BP 185/73; PULSE 59; O2SAT 96
== END | disposition home or self-care (01) ==
LOC: X.SURG 07:51
PROVIDERS: ATTEND Otolaryngology
DX: L02.11 Cutaneous abscess of neck (principal); Z85.820 Personal history of malignant melanoma of skin; Z85.72 Personal history of non-Hodgkin lymphomas; Z79.82 Long term (current) use of aspirin

== ENCOUNTER 2024-03-29 20:44 | Observation (INO) ==
--- NOTE | 2024-03-29 21:12 | Emergency Department Note ---
Impression & Plan Chest pain, Nausea, Elevated troponin I level, Dizziness, Pericardial effusion ED Provider Note NAME: ZENAIDA HAMILTON AGE: 83 SEX: M : 1940 ARRIVES VIA: Ambulance INFORMANT: Patient, ED PROVIDER(S): Wilver Page DO CHIEF COMPLAINT: Generalized illness HPI: The patient is an 83-year-old male who recently had a cardiac catheterization today who presented to the emergency department for an evaluation. The patient states that when he was done with his cardiac catheterization he went home he felt fine. He states this evening he started not feeling well. He describes dizziness as well as nausea as well as abdominal discomfort. He denies having any headache or trauma. He has been compliant with his outpatient medications. The patient states he recently had a complete stroke workup which included an MRI of the brain that reportedly was negative. He is also had CT angiography of the head and neck which showed no flow limiting lesions. This was all done this month. 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 He ROS: See above HPI for pertinent positives & negatives. A total of 10 systems reviewed and were otherwise negative. PAST MEDICAL HISTORY: See Below PAST SURGICAL HISTORY: See Below FAMILY HISTORY: See Below SOCIAL HISTORY: See Below HOME MEDICATIONS: See Below ALLERGIES: See Below VITALS: See Below PHYSICAL EXAMINATION: GENERAL: Patient is awake alert in no acute distress patient is resting comfortably and showing no signs of anxiety EYES: The conjunctivae are clear. The pupils are round and reactive. EARS, NOSE, MOUTH AND THROAT: The nose is without any evidence of any deformity. NECK: The neck is nontender and supple. RESPIRATORY: Normal respiratory effort is noted there is no evidence of wheezing rhonchi or rales CARDIOVASCULAR: Irregular heart sounds were noted to auscultation. There is no definite murmur. GASTROINTESTINAL: The abdomen is soft. Diffuse tenderness was noted with no guarding or rigidity. MUSCULOSKELETAL/EXTREMITIES: There is no evidence of gross deformity full range of motion is noted in the hips and shoulders. SKIN: There is no obvious evidence of any rash. There are no petechiae, pallor or cyanosis noted. NEUROLOGIC: Patient is awake alert and oriented x3 strength is symmetric patellar reflexes are 2+ bilaterally. Faculty Member strength is symmetric. There is no facial droop. Speech was clear. MEDICAL DECISION MAKING: The patient is an 83-year-old male who had a recent cardiac catheterization. He has a history of cardiomyopathy. The patient also has a history of atrial fibrillation. He started having episodes of nausea and chest pain prior to arrival. He did not appear to have any focal neurologic deficits. This appears to be more consistent with an intra-abdominal process or possibly cardiac. I discussed patient's laboratory and radiographic studies with him. He was treated with antiemetics. On reevaluation he was feeling much better. The patient had an elevated troponin. This did come back to his baseline on repeat. He has a small pericardial effusion as well on radiographic studies. I [facility] the [facility] agreed to evaluate the patient in the emergency department for further management and disposition. Triage Nursing notes reviewed. Prior medical records reviewed Vital Signs: reviewed and remarkable for no significant abnormalities Differential diagnosis: Benign positional vertigo, dehydration, hypovolemia, anemia, tumor, infection, hypoglycemia, electrolyte abnormalities, cardiac sources, intracerebral event, toxicologic, neurologic, as well as other pathologies. ER treatment provided: See below Diagnostics interpreted by me: ECG: EKG was obtained in the emergency department. My interpretation is atrial fibrillation at 83 bpm. PVCs were noted. There was no acute ST segment abnormalities noted. This was compared to a tracing from March 20, 2024. No changes were noted. Cardiac Monitoring: An order was placed for continuous cardiac monitoring. The monitor shows a rate of 82 bpm with atrial fibrillation. Laboratory studies: As stated above and show below. Imaging studies: See below. Radiographic imaging was reviewed by myself Consultation(s): I discussed this case with Dr. Hong [facility] 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 BPH loc w/o ur obs/LUTS Allergic rhinitis ocas Vitamin D deficiency HTN (hypertension) Atrial fibrillation with controlled ventricular response Benign essential hypertension (Acute) BPH associated with nocturia Osteoporosis Celiac disease CAD (coronary artery disease) (Acute) Extensive coronary artery calcification noted on CTA in 2018 (negative stress ECHO in 2018) Hyperlipidemia (Acute) Metastatic basal cell carcinoma to lymph node (05/11/17) "Skin lesion on the left shoulder excised approximately 12 years ago Scar tissue excised 4 years ago Scar tissue and development of enlarged node of the left side of the neck Status post biopsy May 11, 2017 revealing basal cell carcinoma Status post FNA of left supraclavicular node revealing metastatic disease June 16, 2017 Status post excision with reconstructive flap surgery and left neck dissection July 02, 2017 Stage pT1 pN1 M0" Medical History Dermatitis herpetiformis Atrial fibrillation Newly dx'ed at [facility] appt on 01/02/21- evaluated in ER - started on Eliquis- will need cardio clearance prior to surgery (currently soonest appt 01/17/21) Hepatitis A Occurred late - treated - no current issues Cataract LEFT EYE - not ready for surgery Irregular heart beat Hypertension Asthmatic bronchitis Hx of 2019 No current breathing issues BPH with obstruction/lower urinary tract symptoms Insomnia Squamous cell carcinoma of skin Following with dermatology Surgical History History of surgical removal of lesion History of surgical removal of keloid Status post incision and drainage (12/20/20) Excision of 2 cysts on back 12/20/20 Dr. Camacho 12/20/20 History of nasal surgery History of esophagogastroduodenoscopy (EGD) History of colonoscopy History of tooth extraction History of skin surgery LEFT SHOULDER skin cancer removed Family History Brother Prostate cancer Prostate hypertrophy Acute myocardial infarction Aunt Acute myocardial infarction Uncle Acute myocardial infarction Mother Congestive heart failure Father Prostate hypertrophy Sister Breast cancer Other No family history of adverse response to anesthesia No family history of bleeding disorder Denies family history of Ovarian cancer Colorectal cancer Social History Smoking Status: Never smoker Second Hand Exposure: No; Do You Dip or Chew Tobacco: No; Hx Alcohol Use: No Hx Substance Use: No Preferred Language: Malagasy Communication Ability: Effective Communication Ability Comment: Fluent in Uzbek Visual Impairment: Limited Hearing Ability: Normal Dental Equipment Mechanic Required: No Beliefs That Will Affect Care: None marital status: Current Living Situation: Family current occupational status: retired How many Children do You have: 2 Feels Safe at Home: Yes Childhood Exposure to Second-Hand Smoke: No Diet: gluten free Diet Comment: Gluten Free caffeine: Yes (coffee ) during the past year weight has: increased > 10 lbs Dental Care, Regularly: No Physical Activity Frequency: Daily Physical Activity Frequency Comment: Walking Seatbelt Use: always Sunscreen Use: No Do you think of yourself as: straight/heterosexual Gender Identity: Male Assistive Devices: Denture - Upper, Denture - Lower and Glasses Allergies Allergies Allergy/AdvReac Type Severity Reaction Status Date / Time No Known Drug Allergies Allergy Verified 03/27/24 11:12 Home Meds Home Medications Medication Instructions Recorded Confirmed cyanocobalamin (vitamin B-12) 500 500 mcg PO QAM 12/30/20 03/29/24 mcg tablet (Vitamin B-12) multivitamin 1 tab PO QAM 12/30/20 03/29/24 magnesium 250 mg tablet 250 mg PO DAILY 07/26/23 03/29/24 Previous Rx's Medication Instructions Recorded calcium 600 mg (as 1 tab PO BID #180 tabs 01/13/23 carbonate)-vitamin D3 20 mcg (800 unit) tablet (Caltrate with Vitamin D3) apixaban 5 mg tablet 5 mg PO BID #60 tabs 07/26/23 atorvastatin 20 mg tablet 20 mg PO DAILY #90 tabs 07/26/23 calcitriol 0.5 mcg capsule 1 mcg (2 x 0.5 mcg) PO DAILY #180 09/27/23 caps tamsulosin 0.4 mg capsule See Rx Instructions .Route 12/06/23 .COMPLEX #90 caps finasteride 5 mg tablet See Rx Instructions .Route 12/20/23 .COMPLEX #90 tabs ibandronate 150 mg tablet 150 mg PO MONTHLY #3 tabs 02/01/24 enalapril maleate 20 mg tablet See Rx Instructions .Route 03/06/24 .COMPLEX #180 tabs mirtazapine 15 mg tablet (Remeron) 15 mg PO HS #90 tabs 03/06/24 carvedilol 3.125 mg tablet 3.125 mg PO BID #60 tabs 03/27/24 furosemide 20 mg tablet 20 mg PO DAILY PRN weight gain, 03/27/24 edema, shortness of breath #60 tabs Results & Data (ED) Vital Signs Vital Signs - 24 hr 03/29/24 20:55 03/29/24 21:00 03/29/24 21:02 Pulse Rate 77 82 Respiratory Rate 20 Blood Pressure 137/95 Blood Pressure Mean 109 Pulse Oximetry 91 93 Oxygen Delivery Method Room Air Room Air Sepsis Recent Fever Within 48 Hours No Sepsis New/Unexplained Change in Mental Status N/A Sepsis Action Taken by Nursing No Action Required 03/29/24 21:51 03/29/24 23:00 03/30/24 00:15 Pulse Rate 75 82 73 Respiratory Rate 16 16 18 Blood Pressure 141/93 H 116/75 121/77 Blood Pressure Mean 109 88 91 Pulse Oximetry 94 96 96 Oxygen Delivery Method Sepsis Recent Fever Within 48 Hours Sepsis New/Unexplained Change in Mental Status Sepsis Action Taken by Skilled Nursing Medications Current Medication List: was personally reviewed by me Laboratory Data Attestation: I reviewed the patient's lab results. 03/29/24 20:59 03/29/24 20:59 Lab Results 03/29/24 03/29/24 Range/Units 20:59 22:50 WBC 8.59 (4.8-10.8) K/ul RBC 3.47 L (4.70-6.10) M/uL Hgb 10.1 L (14.0-18.0) g/dl Hct 30.8 L (42.0-52.0) % MCV 88.8 (80.0-100.0) fL MCH 29.1 (25.0-34.0) pg MCHC 32.8 (32.0-36.0) g/dL RDW Std Deviation 57.3 H (36.4-46.3) fL RDW Coeff of Lizabeth 17.6 H (11.5-14.5) % Plt Count 202 (130-400) K/uL MPV 11.1 (9.4-12.4) fL Immature Gran % (Auto) 0.3 % Neut % (Auto) 73.4 % Lymph % (Auto) 12.8 % [place] % (Auto) 10.4 % Eos % (Auto) 2.6 % Baso % (Auto) 0.5 % Neut # (Auto) 6.31 (1.40-6.50) K/uL Lymph # (Auto) 1.10 L (1.20-3.40) K/uL [place] # (Auto) 0.89 H (0.11-0.59) K/uL Eos # (Auto) 0.22 (0.00-0.50) K/uL Baso # (Auto) 0.04 (0.00-0.20) K/uL Immature Gran # (Auto) 0.03 (0.01-0.20) K/uL PT 15.6 H (9.0-12.0) Seconds INR 1.5 H (0.9-1.1) APTT 29 (21-31) Seconds PTT Ratio 1.1 Sodium 134 L (136-145) mmol/L Potassium 4.4 (3.5-5.1) mmol/L Chloride 101 (98-107) mmol/L Carbon Dioxide 23 (21-32) mmol/L Anion Gap 10 (3-11) BUN 27 H (6-23) mg/dl Creatinine 1.38 (0.6-1.4) mg/dl Est Cr Clr Drug Dosing 37.3 ml/min eGFR 50.42 BUN/Creatinine Ratio 19.6 (10-20) Glucose 80 (70-99(Fasting)) mg/dl Calcium 9.0 (8.6-10.3) mg/dl Total Bilirubin 0.5 (0.2-1.0) mg/dl AST 25 (13-39) U/L ALT 27 (7-52) U/L Alkaline Phosphatase 164 H (34-104) U/L Troponin I High Sens 64.6 H* 42.8 H D (0-20) pg/ml Total Protein 10.4 H (6.0-8.3) gm/dl Albumin 3.1 L (3.4-5.0) gm/dl Globulin 7.3 H (2.5-4.0) gm/dl Albumin/Globulin Ratio 0.4 L (0.9-2) Lipase 18 (11-82) U/L Urine Color Yellow Urine Appearance Clear (Clear) Urine pH 5.0 (4.5-7.5) Ur Specific [place] 1.026 (1.000-1.030) Urine Protein Trace H (Negative) Urine Glucose (UA) Negative (Negative) Urine Ketones Negative (Negative) Urine Blood Trace H (Negative) Urine Nitrite Negative (Negative) Urine Bilirubin Negative (Negative) Urine Urobilinogen Negative (Negative) Ur Leukocyte Esterase Negative (Negative) Urine WBC (Auto) 0-5 (0-5) /hpf Urine RBC (Auto) 0-2 (0-2) /hpf U Hyaline Cast (Auto) 3-5 H (0-2) /lpf U Epithel Cells (Auto) 0-2 (0-2) /hpf Urine Bacteria (Auto) None Seen (None Seen) Administered Medications Discontinued Medications Ondansetron HCl (Ondansetron Inj 2 Mg/Ml 2 Ml Vial) 4 mg IV NOW STA Stop: 03/29/24 21:07 Last Admin: 03/29/24 21:32 Dose: 4 mg Documented By: LISA Imaging Data Attestation: I personally reviewed and interpreted this imaging study as follows: My Impression: 1 view chest x-ray was obtained in the emergency department. My interpretation is no free air or definite infiltrate, final report pending. CT of the brain was obtained in the emergency department. My interpretation is no intracranial hemorrhage or mass effect, final report below. CT of the abdomen and pelvis was obtained in the emergency department. My interpretation is no free air or signs of bowel obstruction, final report below. The finding on the CT the abdomen pelvis does appear to be less consistent with a surgical abdomen. The patient has no tenderness in this area. Radiologist's Impression: Head CT 03/29/24 21:06 Exam(s): CT HEAD Without Contrast EXAM: CT Head Without Intravenous Contrast CLINICAL HISTORY: Reason for exam: dizzy. TECHNIQUE: Axial computed tomography images of the head/brain without intravenous contrast. CTDI is 36.79 mGy and DLP is 625.8 mGy-cm. Automated exposure control was utilized for the study. A dose lowering technique was utilized adhering to the principles of ALARA. COMPARISON: No relevant prior studies available. FINDINGS: Brain: Unremarkable. No hemorrhage. No significant white matter disease. No edema. Ventricles: Unremarkable. No ventriculomegaly. Bones/joints: Unremarkable. No acute fracture. Soft tissues: Unremarkable. Sinuses: Unremarkable as visualized. No acute sinusitis. Mastoid air cells: Unremarkable as visualized. No mastoid effusion. IMPRESSION: Normal head/brain CT. Electronically signed by: Isai Mullen MD 03/29/24 23:50 PM Abdomen/Pelvis CT 03/29/24 21:07 Exam(s): CT ABDOMEN + PELVIS Without Contrast EXAM: CT Abdomen and Pelvis Without Intravenous Contrast CLINICAL HISTORY: Reason for exam: pain. TECHNIQUE: Axial computed tomography images of the abdomen and pelvis without intravenous contrast. CTDI is 14.47 mGy and DLP is 727.85 mGy-cm. Automated exposure control was utilized for the study. A dose lowering technique was utilized adhering to the principles of ALARA. COMPARISON: No relevant prior studies available. FINDINGS: Lung bases: Unremarkable. No mass. No consolidation. Heart: Small pericardial effusion. Cardiomegaly. Coronary artery calcifications. ABDOMEN: Liver: Unremarkable. Gallbladder and bile ducts: Cholelithiasis without evidence of acute cholecystitis. No ductal dilation. Pancreas: Unremarkable. No ductal dilation. Spleen: Unremarkable. No splenomegaly. Adrenals: Unremarkable. No mass. Kidneys and ureters: Both kidneys opacify with and excrete contrast and are normal and symmetric fashion. Bilateral renal cysts measuring up to 5.6 cm on the left and 3.6 cm on the right. No obstructing stones. No hydronephrosis. Stomach and bowel: Focal area of intussusception involving a loop of small bowel in the right lower quadrant. This is likely transient in nature. No obstruction. No mucosal thickening. PELVIS: Appendix: No findings to suggest acute appendicitis. Bladder: Marked distention of the urinary bladder. No stones. Reproductive: Enlarged prostate. ABDOMEN and PELVIS: Intraperitoneal space: Unremarkable. No free air. No significant fluid collection. Bones/joints: No acute fracture. No dislocation. Soft tissues: Unremarkable. Vasculature: See above. Lymph nodes: Unremarkable. No enlarged lymph nodes. IMPRESSION: Small pericardial effusion. Marked distention of urinary bladder Focal intussusception involving a loop of small bowel within the right lower quadrant. This is likely transient in nature. Electronically signed by: Isai Mullen MD 03/30/24 00:00 AM Discharge Plan Visit Data Chief Complaint: Cardiac Assessment Stated Complaint: ILLNESS ED Provider: Wilver Page Discharge Problem: Chest pain, Nausea, Elevated troponin I level, Dizziness, Pericardial effusion Patient Disposition: Being Evaluated by Hospitalist Forms Stand Alone Forms: [employer] Prescriptions Prescriptions: No Action calcium carbonate-vitamin D3 [Caltrate with Vitamin D3] 600 mg-20 mcg (800 unit) tablet 1 tab PO BID Qty: 180 6RF calcitriol 0.5 mcg capsule 1 mcg PO DAILY Qty: 180 1RF Hold Instructions: hypertension tamsulosin 0.4 mg capsule See Rx Instructions .ROUTE .COMPLEX Qty: 90 1RF Dose Instruction: TAKE 1 CAPSULE BY MOUTH DAILY Rx Instructions: TAKE 1 CAPSULE BY MOUTH DAILY finasteride 5 mg tablet See Rx Instructions .ROUTE .COMPLEX Qty: 90 3RF Dose Instruction: TAKE 1 TABLET BY MOUTH DAILY Rx Instructions: TAKE 1 TABLET BY MOUTH DAILY ibandronate 150 mg tablet 150 mg PO MONTHLY Qty: 3 3RF Rx Instructions: Clinic first thing in the morning with 8 oz water and stay upright without eating for 30 minutes enalapril maleate 20 mg tablet See Rx Instructions .ROUTE .COMPLEX Qty: 180 2RF Dose Instruction: TAKE 1 TABLET, BY MOUTH, TWO TIMES A DAY. Rx Instructions: TAKE 1 TABLET, BY MOUTH, TWO TIMES A DAY. mirtazapine [Remeron] 15 mg tablet 15 mg PO HS Qty: 90 1RF magnesium 250 mg tablet 250 mg PO DAILY apixaban 5 mg tablet 5 mg PO BID Qty: 60 5RF atorvastatin 20 mg tablet 20 mg PO DAILY Qty: 90 3RF carvedilol 3.125 mg tablet 3.125 mg PO BID Qty: 60 2RF Rx Instructions: must administer with a meal/food furosemide 20 mg tablet 20 mg PO DAILY PRN (Reason: weight gain, edema, shortness of breath) Qty: 60 2RF cyanocobalamin (vitamin B-12) [Vitamin B-12] 500 mcg Tablet 500 mcg PO QAM multivitamin tablet 1 tab PO QAM Referrals Referrals: Padilla Orozco MD [Primary Care Provider] - Discharge Problem: Chest pain Qualifiers: Chest pain type: unspecified Qualified Code(s): R07.9 - Chest pain, unspecified
[2024-03-29] MEDS: ONDANSETRON INJ 2 MG/ML 2 ML VIAL IV STA (21:32)
[2024-03-29 21:42] LABS: Albumin Globulin Ratio 0.4 (0.9-2); Albumin Level 3.1 gm/dl (3.4-5.0); BUN Creatinine Ratio 19.6 (10-20); Bilirubin,Total 0.5 mg/dl (0.2-1.0); Creatinine Clr Calc Pharmacy 37.3 ml/min; Globulin 7.3 gm/dl (2.5-4.0); Potassium 4.4 mmol/L (3.5-5.1); Total Protein 10.4 gm/dl (6.0-8.3)
[2024-03-29 21:53] LABS: INR 1.5 (0.9-1.1); Partial Thromboplastin Ratio 1.1; Partial Thromboplastin Time 29 Seconds (21-31); Prothrombin Time 15.6 Seconds (9.0-12.0)
[2024-03-29 21:55] LABS: Troponin I High Sensitivity 64.6 pg/ml (0-20)
[2024-03-29 22:46] LABS: Basophils # (auto) 0.04 K/uL (0.00-0.20); Basophils % (auto) 0.5 %; Eosinophils # (auto) 0.22 K/uL (0.00-0.50); Eosinophils % (auto) 2.6 %; Hematocrit (blood only) 30.8 % (42.0-52.0); Hemoglobin 10.1 g/dl (14.0-18.0); Immature Granulocytes # (auto) 0.03 K/uL (0.01-0.20); Immature Granulocytes % (auto) 0.3 %; Lymphocytes % (auto) 12.8 %; Mean Corpuscular Hemoglobin 29.1 pg (25.0-34.0); Mean Corpuscular Hgb Conc 32.8 g/dL (32.0-36.0); Mean Corpuscular Volume 88.8 fL (80.0-100.0); Mean Platelet Volume 11.1 fL (9.4-12.4); Monocytes # (auto) 0.89 K/uL (0.11-0.59); Monocytes % (auto) 10.4 %; Neutrophils # (auto) 6.31 K/uL (1.40-6.50); Neutrophils % (auto) 73.4 %; Platelet Count 202 K/uL (130-400); RDW Coefficient of Variation 17.6 % (11.5-14.5); RDW Standard Deviation 57.3 fL (36.4-46.3); Red Blood Count 3.47 M/uL (4.70-6.10); White Blood Count 8.59 K/ul (4.8-10.8)
[2024-03-29 23:13] LABS: Appearance Urine Clear (Clear); Bacteria Urine Automated None Seen (None Seen); Bilirubin Urine Negative (Negative); Blood Urine Trace (Negative); Color Urine Yellow; Epithelial Cell Urine Auto 0-2 /hpf (0-2); Glucose Urine UA Negative (Negative); Ketones Urine Negative (Negative); Leukocyte Esterase Urine Negative (Negative); Nitrite Urine Negative (Negative); Protein Urine Trace (Negative); RBC Urine Automated 0-2 /hpf (0-2); Specific Gravity Urine 1.026 (1.000-1.030); Urobilinogen Urine Negative (Negative); WBC Urine Automated 0-5 /hpf (0-5)
--- NOTE | 2024-03-29 23:51 | CT Scan Report ---
Exam(s): CT HEAD Without Contrast EXAM: CT Head Without Intravenous Contrast CLINICAL HISTORY: Reason for exam: dizzy. TECHNIQUE: Axial computed tomography images of the head/brain without intravenous contrast. CTDI is 36.79 mGy and DLP is 625.8 mGy-cm. Automated exposure control was utilized for the study. A dose lowering technique was utilized adhering to the principles of ALARA. COMPARISON: No relevant prior studies available. FINDINGS: Brain: Unremarkable. No hemorrhage. No significant white matter disease. No edema. Ventricles: Unremarkable. No ventriculomegaly. Bones/joints: Unremarkable. No acute fracture. Soft tissues: Unremarkable. Sinuses: Unremarkable as visualized. No acute sinusitis. Mastoid air cells: Unremarkable as visualized. No mastoid effusion. IMPRESSION: Normal head/brain CT. Electronically signed by: Isai Mullen MD 03/29/24 23:50 PM
--- NOTE | 2024-03-30 00:02 | CT Scan Report ---
Exam(s): CT ABDOMEN + PELVIS Without Contrast EXAM: CT Abdomen and Pelvis Without Intravenous Contrast CLINICAL HISTORY: Reason for exam: pain. TECHNIQUE: Axial computed tomography images of the abdomen and pelvis without intravenous contrast. CTDI is 14.47 mGy and DLP is 727.85 mGy-cm. Automated exposure control was utilized for the study. A dose lowering technique was utilized adhering to the principles of ALARA. COMPARISON: No relevant prior studies available. FINDINGS: Lung bases: Unremarkable. No mass. No consolidation. Heart: Small pericardial effusion. Cardiomegaly. Coronary artery calcifications. ABDOMEN: Liver: Unremarkable. Gallbladder and bile ducts: Cholelithiasis without evidence of acute cholecystitis. No ductal dilation. Pancreas: Unremarkable. No ductal dilation. Spleen: Unremarkable. No splenomegaly. Adrenals: Unremarkable. No mass. Kidneys and ureters: Both kidneys opacify with and excrete contrast and are normal and symmetric fashion. Bilateral renal cysts measuring up to 5.6 cm on the left and 3.6 cm on the right. No obstructing stones. No hydronephrosis. Stomach and bowel: Focal area of intussusception involving a loop of small bowel in the right lower quadrant. This is likely transient in nature. No obstruction. No mucosal thickening. PELVIS: Appendix: No findings to suggest acute appendicitis. Bladder: Marked distention of the urinary bladder. No stones. Reproductive: Enlarged prostate. ABDOMEN and PELVIS: Intraperitoneal space: Unremarkable. No free air. No significant fluid collection. Bones/joints: No acute fracture. No dislocation. Soft tissues: Unremarkable. Vasculature: See above. Lymph nodes: Unremarkable. No enlarged lymph nodes. IMPRESSION: Small pericardial effusion. Marked distention of urinary bladder Focal intussusception involving a loop of small bowel within the right lower quadrant. This is likely transient in nature. Electronically signed by: Isai Mullen MD 03/30/24 00:00 AM
--- NOTE | 2024-03-30 00:48 | History & Physical Report ---
Date of Service March 30, 2024 Assessment & Plan (1) Nausea: Plan: 83yo male with newly diagnosed cardiomyopathy, HFrEF currently undergoing workup. Patient had a diagnostic catheterization performed today which revealed mild, non-obstructive coronary disease, markedly reduced EF and normal LVEDP. Patient developed nausea after returning home. -Observation to medical with telemetry -Zofran PRN Do not feel that this nausea is secondary to cardiac cause -Repeat troponin in AM -Telemetry monitoring (2) Cardiomyopathy: Plan: Patient appears well compensated. Currently undergoing workup for cardiomyopathy -Continue Carvedilol and Enalapril Plan Chronic Medical Condition: Atrial fibrillation -Continue Carvedilol -Continue Apixaban Hypertension -Continue Carvedilol -Continue Enalapril Hyperlipidemia -Continue Atorvastatin BPH -Continue Flomax -Continue Finasteride History of Present Illness Chief Complaint: nausea Primary Care Provider: Padilla Orozco MD Pavel Delgadillo is a pleasant 83yo male with newly diagnosed HFrEF in February 2024 (30-35% at that time) presenting with nausea. Patient underwent cardiac catheterization yesterday 03/29/24 for ongoing workup of new HFrEF. He was found to have mild non-obstructive disease, severely reduced EF of 25% and normal LVEDP. He returned home from the cath around 17:00 - took his medications, ate some dinner and drank some juice. He then developed nausea. He laid down for a bit and when he woke up he had worsening nausea. He vomited several times - food, non-bloody/non-bilious. His daughter was with him and called his PCP and was instructed to come to the ER. Patient now feels back to normal. States that his abdomen is a little sore from vomiting. Otherwise denies chest pain, palpitations, abdominal pain. No additional complaints at this time. Allergies Allergy/AdvReac Type Severity Reaction Status Date / Time No Known Drug Allergies Allergy Verified 03/27/24 11:12 Home Medications Medication Instructions Recorded Confirmed Type cyanocobalamin (vitamin B-12) 500 500 mcg PO QAM 12/30/20 03/30/24 History mcg tablet (Vitamin B-12) multivitamin 1 tab PO QAM 12/30/20 03/30/24 History calcium 600 mg (as 1 tab PO BID #180 tabs 01/13/23 03/30/24 Rx carbonate)-vitamin D3 20 mcg (800 unit) tablet (Caltrate with Vitamin D3) magnesium 250 mg tablet 250 mg PO DAILY 07/26/23 03/30/24 History ibandronate 150 mg tablet 150 mg PO MONTHLY #3 tabs 02/01/24 03/30/24 Rx mirtazapine 15 mg tablet (Remeron) 15 mg PO HS #90 tabs 03/06/24 03/30/24 Rx carvedilol 3.125 mg tablet 3.125 mg PO BID #60 tabs 03/27/24 03/30/24 Rx furosemide 20 mg tablet 20 mg PO DAILY PRN weight gain, 03/27/24 03/30/24 Rx edema, shortness of breath #60 tabs apixaban 5 mg tablet 5 mg PO .CURRENTLY ON HOLD 03/30/24 03/30/24 History atorvastatin 20 mg tablet 20 mg PO QAM 03/30/24 03/30/24 History calcitriol 0.5 mcg capsule 1 mcg PO QAM 03/30/24 03/30/24 History enalapril maleate 20 mg tablet 20 mg PO AMHS 03/30/24 03/30/24 History finasteride 5 mg tablet 5 mg PO QAM 03/30/24 03/30/24 History tamsulosin 0.4 mg capsule 0.4 mg PO QAM 03/30/24 03/30/24 History Past Med/Surg History Problem List Pericardial effusion (Acute) Dizziness (Acute) Elevated troponin I level (Acute) Nausea (Acute) Chest pain (Acute) Cardiomyopathy HFrEF (heart failure with reduced ejection fraction) CHF (congestive heart failure) (Acute) Dyspnea (Acute) Elevated troponin (Acute) (HFpEF) heart failure with preserved ejection fraction CHF (congestive heart failure) Weight loss, abnormal Edema 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 BPH loc w/o ur obs/LUTS Allergic rhinitis ocas Vitamin D deficiency HTN (hypertension) Atrial fibrillation with controlled ventricular response Benign essential hypertension (Acute) BPH associated with nocturia Osteoporosis Celiac disease CAD (coronary artery disease) (Acute) Extensive coronary artery calcification noted on CTA in 2018 (negative stress ECHO in 2018) Hyperlipidemia (Acute) Metastatic basal cell carcinoma to lymph node (05/11/17) "Skin lesion on the left shoulder excised approximately 12 years ago Scar tissue excised 4 years ago Scar tissue and development of enlarged node of the left side of the neck Status post biopsy May 11, 2017 revealing basal cell carcinoma Status post FNA of left supraclavicular node revealing metastatic disease June 16, 2017 Status post excision with reconstructive flap surgery and left neck dissection July 02, 2017 Stage pT1 pN1 M0" Medical History Dermatitis herpetiformis Atrial fibrillation Newly dx'ed at [facility] appt on 01/02/21- evaluated in ER - started on Eliquis- will need cardio clearance prior to surgery (currently soonest appt 01/17/21) Hepatitis A Occurred late - treated - no current issues Cataract LEFT EYE - not ready for surgery Irregular heart beat Hypertension Asthmatic bronchitis Hx 2019 No current breathing issues BPH with obstruction/lower urinary tract symptoms Insomnia Squamous cell carcinoma of skin Following with dermatology Surgical History History of surgical removal of lesion History of surgical removal of keloid Status post incision and drainage (12/20/20) Excision of 2 cysts on back 12/20/20 Dr. Camacho 12/20/20 History of nasal surgery History of esophagogastroduodenoscopy (EGD) History of colonoscopy History of tooth extraction History of skin surgery LEFT SHOULDER skin cancer removed Family History Brother Prostate cancer Prostate hypertrophy Acute myocardial infarction Aunt Acute myocardial infarction Uncle Acute myocardial infarction Mother Congestive heart failure Father Prostate hypertrophy Sister Breast cancer Other No family history of adverse response to anesthesia No family history of bleeding disorder Denies family history of Ovarian cancer Colorectal cancer Social History Smoking Status: Never smoker Second Hand Exposure: No; Do You Dip or Chew Tobacco: No; Hx Alcohol Use: No Hx Substance Use: No Preferred Language: Albanian Communication Ability: Effective Communication Ability Comment: Fluent in [place]ian Visual Impairment: Limited Hearing Ability: Normal Propulsion Engineer Required: No Beliefs That Will Affect Care: None marital status: Current Living Situation: Family current occupational status: retired How many Children do You have: 2 Feels Safe at Home: Yes Childhood Exposure to Second-Hand Smoke: No Diet: gluten free Diet Comment: Gluten Free caffeine: Yes (coffee ) during the past year weight has: increased > 10 lbs Dental Care, Regularly: No Physical Activity Frequency: Daily Physical Activity Frequency Comment: Walking Seatbelt Use: always Sunscreen Use: No Do you think of yourself as: straight/heterosexual Gender Identity: Male Assistive Devices: Denture - Upper, Denture - Lower and Glasses Review of Systems Review of Systems: All systems reviewed & are unremarkable except as noted in HPI & below Physical Exam Physical Exam: General: patient resting comfortably, NAD, non-toxic in appearance, AA&O x 4 Skin: warm, dry, intact, no rashes or lesions HEENT: NC/AT, PERRL, EOMI, anicteric sclera, conjunctiva without injection, external ear normal to inspection and nontender, nares patent, moist mucus membranes, dentition intact, no oropharyngeal lesions, neck supple, trachea midline, no LAD, no thyromegaly, no JVD Heart: +S1/S2, irregularly irregular, no m/r/g Lungs: equal air entry bilaterally, no rales/rhonchi/wheezes Abd: +BS, soft, NT/ND, no masses/organomegaly/ascites Ext: warm, 2+ pulses in UE/LE bilaterally, no clubbing/cyanosis or edema Neuro: nonfocal, patient AA&O x 4, speech intact, no facial droop, moving all extremities on command with equal strength 5/5 Results & Data Results & Data Vital Signs (Past 12 Hours) Vital Signs Pulse Resp BP Pulse Ox O2 Del Method 03/30/24 00:15 73 18 121/77 96 03/29/24 23:00 82 16 116/75 96 03/29/24 21:51 75 16 141/93 H 94 03/29/24 21:02 82 03/29/24 21:00 93 Room Air 03/29/24 20:55 77 20 137/95 91 Room Air Laboratory Results Laboratory Results WBC 8.59 K/ul (4.8-10.8) 03/29/24 20:59 RBC 3.47 M/uL (4.70-6.10) L 03/29/24 20:59 Hgb 10.1 g/dl (14.0-18.0) L 03/29/24 20:59 Hct 30.8 % (42.0-52.0) L 03/29/24 20:59 MCV 88.8 fL (80.0-100.0) 03/29/24 20:59 MCH 29.1 pg (25.0-34.0) 03/29/24 20:59 MCHC 32.8 g/dL (32.0-36.0) 03/29/24 20:59 RDW Std Deviation 57.3 fL (36.4-46.3) H 03/29/24 20:59 RDW Coeff of Lizabeth 17.6 % (11.5-14.5) H 03/29/24 20:59 Plt Count 202 K/uL (130-400) 03/29/24 20:59 MPV 11.1 fL (9.4-12.4) 03/29/24 20:59 Immature Gran % (Auto) 0.3 % 03/29/24 20:59 Neut % (Auto) 73.4 % 03/29/24 20:59 Lymph % (Auto) 12.8 % 03/29/24 20:59 Henry % (Auto) 10.4 % 03/29/24 20:59 Eos % (Auto) 2.6 % 03/29/24 20:59 Baso % (Auto) 0.5 % 03/29/24 20:59 Neut # (Auto) 6.31 K/uL (1.40-6.50) 03/29/24 20:59 Lymph # (Auto) 1.10 K/uL (1.20-3.40) L 03/29/24 20:59 Henry # (Auto) 0.89 K/uL (0.11-0.59) H 03/29/24 20:59 Eos # (Auto) 0.22 K/uL (0.00-0.50) 03/29/24 20:59 Baso # (Auto) 0.04 K/uL (0.00-0.20) 03/29/24 20:59 Immature Gran # (Auto) 0.03 K/uL (0.01-0.20) 03/29/24 20:59 PT 15.6 Seconds (9.0-12.0) H 03/29/24 20:59 INR 1.5 (0.9-1.1) H 03/29/24 20:59 APTT 29 Seconds (21-31) 03/29/24 20:59 PTT Ratio 1.1 03/29/24 20:59 Sodium 134 mmol/L (136-145) L 03/29/24 20:59 Potassium 4.4 mmol/L (3.5-5.1) 03/29/24 20:59 Chloride 101 mmol/L (98-107) 03/29/24 20:59 Carbon Dioxide 23 mmol/L (21-32) 03/29/24 20:59 Anion Gap 10 (3-11) 03/29/24 20:59 BUN 27 mg/dl (6-23) H 03/29/24 20:59 Creatinine 1.38 mg/dl (0.6-1.4) 03/29/24 20:59 Est Cr Clr Drug Dosing 37.3 ml/min 03/29/24 20:59 eGFR 50.42 03/29/24 20:59 BUN/Creatinine Ratio 19.6 (10-20) 03/29/24 20:59 Glucose 80 mg/dl (70-99(Fasting)) 03/29/24 20:59 Calcium 9.0 mg/dl (8.6-10.3) 03/29/24 20:59 Total Bilirubin 0.5 mg/dl (0.2-1.0) 03/29/24 20:59 AST 25 U/L (13-39) 03/29/24 20:59 ALT 27 U/L (7-52) 03/29/24 20:59 Alkaline Phosphatase 164 U/L (34-104) H 03/29/24 20:59 Troponin I High Sens 42.8 pg/ml (0-20) H D 03/29/24 22:50 Total Protein 10.4 gm/dl (6.0-8.3) H 03/29/24 20:59 Albumin 3.1 gm/dl (3.4-5.0) L 03/29/24 20:59 Globulin 7.3 gm/dl (2.5-4.0) H 03/29/24 20:59 Albumin/Globulin Ratio 0.4 (0.9-2) L 03/29/24 20:59 Lipase 18 U/L (11-82) 03/29/24 20:59 Urine Color Yellow 03/29/24 22:50 Urine Appearance Clear (Clear) 03/29/24 22:50 Urine pH 5.0 (4.5-7.5) 03/29/24 22:50 Ur Specific [place] 1.026 (1.000-1.030) 03/29/24 22:50 Urine Protein Trace (Negative) H 03/29/24 22:50 Urine Glucose (UA) Negative (Negative) 03/29/24 22:50 Urine Ketones Negative (Negative) 03/29/24 22:50 Urine Blood Trace (Negative) H 03/29/24 22:50 Urine Nitrite Negative (Negative) 03/29/24 22:50 Urine Bilirubin Negative (Negative) 03/29/24 22:50 Urine Urobilinogen Negative (Negative) 03/29/24 22:50 Ur Leukocyte Esterase Negative (Negative) 03/29/24 22:50 Urine WBC (Auto) 0-5 /hpf (0-5) 03/29/24 22:50 Urine RBC (Auto) 0-2 /hpf (0-2) 03/29/24 22:50 U Hyaline Cast (Auto) 3-5 /lpf (0-2) H 03/29/24 22:50 U Epithel Cells (Auto) 0-2 /hpf (0-2) 03/29/24 22:50 Urine Bacteria (Auto) None Seen (None Seen) 03/29/24 22:[address] 03/29/24 21:06 Exam(s): CT HEAD Without Contrast EXAM: CT Head Without Intravenous Contrast CLINICAL HISTORY: Reason for exam: dizzy. TECHNIQUE: Axial computed tomography images of the head/brain without intravenous contrast. CTDI is 36.79 mGy and DLP is 625.8 mGy-cm. Automated exposure control was utilized for the study. A dose lowering technique was utilized adhering to the principles of ALARA. COMPARISON: No relevant prior studies available. FINDINGS: Brain: Unremarkable. No hemorrhage. No significant white matter disease. No edema. Ventricles: Unremarkable. No ventriculomegaly. Bones/joints: Unremarkable. No acute fracture. Soft tissues: Unremarkable. Sinuses: Unremarkable as visualized. No acute sinusitis. Mastoid air cells: Unremarkable as visualized. No mastoid effusion. IMPRESSION: Normal head/brain CT. Electronically signed by: Isai Mullen MD 03/29/24 23:50 PM Abdomen/Pelvis CT 03/29/24 21:07 Exam(s): CT ABDOMEN + PELVIS Without Contrast EXAM: CT Abdomen and Pelvis Without Intravenous Contrast CLINICAL HISTORY: Reason for exam: pain. TECHNIQUE: Axial computed tomography images of the abdomen and pelvis without intravenous contrast. CTDI is 14.47 mGy and DLP is 727.85 mGy-cm. Automated exposure control was utilized for the study. A dose lowering technique was utilized adhering to the principles of ALARA. COMPARISON: No relevant prior studies available. FINDINGS: Lung bases: Unremarkable. No mass. No consolidation. Heart: Small pericardial effusion. Cardiomegaly. Coronary artery calcifications. ABDOMEN: Liver: Unremarkable. Gallbladder and bile ducts: Cholelithiasis without evidence of acute cholecystitis. No ductal dilation. Pancreas: Unremarkable. No ductal dilation. Spleen: Unremarkable. No splenomegaly. Adrenals: Unremarkable. No mass. Kidneys and ureters: Both kidneys opacify with and excrete contrast and are normal and symmetric fashion. Bilateral renal cysts measuring up to 5.6 cm on the left and 3.6 cm on the right. No obstructing stones. No hydronephrosis. Stomach and bowel: Focal area of intussusception involving a loop of small bowel in the right lower quadrant. This is likely transient in nature. No obstruction. No mucosal thickening. PELVIS: Appendix: No findings to suggest acute appendicitis. Bladder: Marked distention of the urinary bladder. No stones. Reproductive: Enlarged prostate. ABDOMEN and PELVIS: Intraperitoneal space: Unremarkable. No free air. No significant fluid collection. Bones/joints: No acute fracture. No dislocation. Soft tissues: Unremarkable. Vasculature: See above. Lymph nodes: Unremarkable. No enlarged lymph nodes. IMPRESSION: Small pericardial effusion. Marked distention of urinary bladder Focal intussusception involving a loop of small bowel within the right lower quadrant. This is likely transient in nature. Electronically signed by: Isai Mullen MD 03/30/24 00:00 AM ECG Additional Comments: EKG wtih AF with PVCs, left axis deviation, no acute ischemic changes PG Care Time/CCT Total # of Minutes Spent Total Time Spent with Patient: Total time spent is greater than 50% in coordination of care (as documented) at patient's floor/unit and/or counseling patient: Coding Level of Care Code 58570 INT INP/OBS CARE 2/55MIN Diagnoses Nausea R11.0 Cardiomyopathy I42.9
[2024-03-30] MEDS ORDERED: ONDANSETRON INJ 2 MG/ML 2 ML VIAL IV PRN (01:12)
[2024-03-30] MEDS ORDERED: ACETAMINOPHEN 325 MG TAB PO PRN (01:12)
[2024-03-30] MEDS ORDERED: APIXABAN 5 MG TABLET PO SCH (01:30)
[2024-03-30 01:53] VITALS: BP 105/65; O2SAT 97
--- NOTE | 2024-03-30 06:39 | XRay Report ---
SINGLE VIEW CHEST CLINICAL HISTORY: Nausea FINDINGS: 2 AP, portable, upright chest radiographs are compared to study dated 03/20/2024 and correl ated with chest CT dated 06/08/2017. The heart is enlarged noting atherosclerotic calcification of the thoracic aorta. The pulmonary vasculature is noncongested. Chronic interstitial thickening similar to previous. There are scattered calcified granulomas. Scarring/atelectasis is noted at the lung bases. No airspace consolidation or large pleural effusion is identified. No pneumothorax is seen. The skel etal structures are osteopenic. There is chronic deformity of the right clavicle. There chronic/heale d left-sided rib fractures. IMPRESSION: Cardiomegaly with no active disease in the chest. ACT 112: Negative or not required by law. Electronically signed by: Raleigh Baumann M.D. 03/30/2024 6:38 AM
--- NOTE | 2024-03-30 08:09 | Hospitalist Progress Note ---
Date of Service March 30, 2024 Assessment & Plan (1) Nausea: Plan: 83yo male with newly diagnosed cardiomyopathy, HFrEF currently undergoing workup. Patient had a diagnostic catheterization performed 03/29 which revealed mild, non-obstructive coronary disease, markedly reduced EF and normal LVEDP. Patient developed nausea after returning home and re presented -Repeat troponin in AM 64-42-33 (2) Cardiomyopathy: Plan: Patient appears well compensated. 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: Plan Chronic Medical Condition: Atrial fibrillation rate controlled -Continue Carvedilol -Continue Apixaban Hypertension -Continue Carvedilol -Continue Enalapril Hyperlipidemia -Continue Atorvastatin BPH -Continue Flomax -Continue Finasteride Admission and Anticipated Discharge Date Admission Date: March 30, 2024 Results & Data Results & Data Vital Signs (Past 12 Hours) Vital Signs Temp Pulse Pulse Resp BP BP Pulse Ox 03/30/24 01:40 97.9 F 70 18 105/65 97 03/30/24 01:00 76 03/30/24 00:15 73 18 121/77 96 03/29/24 23:00 82 16 116/75 96 03/29/24 21:51 75 16 141/93 H 94 03/29/24 21:02 82 03/29/24 21:00 93 03/29/24 20:55 77 20 137/95 91 O2 Del Method 03/30/24 01:40 Room Air 03/30/24 01:00 03/30/24 00:15 03/29/24 23:00 03/29/24 21:51 03/29/24 21:02 03/29/24 21:00 Room Air 03/29/24 20:55 Room Air PG Care Time/CCT Total # of Minutes Spent Total Time Spent with Patient: Total time spent is greater than 50% in coordination of care (as documented) at patient's floor/unit and/or counseling patient: Coding Diagnoses Nausea R11.0 Cardiomyopathy I42.9 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
[2024-03-30 08:51] VITALS: PULSE 67; RESP 16; TEMP 97.5
[2024-03-30] MEDS: ENALAPRIL MALEATE 10 MG TAB PO SCH (09:22)
[2024-03-30] MEDS: TAMSULOSIN HCL 0.4 MG CAP PO SCH (09:22)
[2024-03-30] MEDS: FINASTERIDE 5 MG TAB PO SCH (09:22)
[2024-03-30] MEDS: CALCITRIOL 0.25 MCG CAPSULE PO SCH (09:22)
[2024-03-30] MEDS: carvediloL 3.125 MG TAB PO SCH (09:22)
[2024-03-30] MEDS: ATORVASTATIN 20 MG TAB PO SCH (09:22)
--- NOTE | 2024-03-30 15:01 | Electrocardiogram Report ---
Test Reason : Blood Pressure : */* mmHG Vent. Rate : 83 BPM Atrial Rate : * BPM P-R Int : * ms QRS Dur : 98 ms QT Int : 364 ms P-R-T Axes : * -51 37 degrees QTcB Int : 427 ms Atrial fibrillation with premature ventricular or aberrantly conducted complexes Left axis deviation Minimal voltage criteria for LVH, may be normal variant Abnormal ECG When compared with ECG of 20-Mar-2024 13:15, No significant change was found Confirmed by Robert Garcia ([id number] on 03/30/2024 3:01:30 PM Referred By: REFERRED SELF Confirmed By: Robert Garcia
--- NOTE | 2024-03-30 15:36 | Electrocardiogram Report ---
Test Reason : Blood Pressure : */* mmHG Vent. Rate : 72 BPM Atrial Rate : 277 BPM P-R Int : * ms QRS Dur : 100 ms QT Int : 404 ms P-R-T Axes : * -52 42 degrees QTcB Int : 442 ms Atrial fibrillation Left axis deviation Abnormal ECG When compared with ECG of 29-Mar-2024 20:52, (unconfirmed) No significant change was found Confirmed by Robert Garcia ([id number] on 03/30/2024 3:35:34 PM Referred By: REFERRED SELF Confirmed By: Robert Garcia
--- NOTE | 2024-03-30 17:58 | Discharge Summary ---
Discharge Summary Date of Service March 30, 2024 Principal Dx & Hospital Course #1 = Principal Diagnosis (1) Nausea: 83yo male with newly diagnosed cardiomyopathy, HFrEF currently undergoing workup. Patient had a diagnostic catheterization performed 03/29 which revealed mild, non-obstructive coronary disease, markedly reduced EF and normal LVEDP. Patient developed nausea after returning home and re presented -Repeat troponin in AM 64-42-33, not nstemi suspect demand ischemia from [facility] (2) Cardiomyopathy: Patient appears well compensated. 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 Patient underwent cardiac catheterization yesterday 03/29/24 for ongoing workup of new HFrEF. He was found to have mild non-obstructive disease, severely reduced EF of 25% and normal LVEDP. [facility] around 17:00 - took his medications, ate some dinner and drank some juice. He then developed nausea. He laid down for a bit and when he woke up he had worsening nausea. He vomited several times - food, non-bloody/non-bilious. His daughter was with him and called his PCP and was instructed to come to the ER. Patient now feels back to normal. States that his abdomen is a little sore from vomiting. Otherwise denies chest pain, palpitations, abdominal pain. No additional complaints at this time. Discharge Exam awake no signs of Heart failure cardiac is regular and rate controlled Discharge Plan Discharge Items Patient Disposition: Home - Self-Care Reason For Visit: NAUSEA S/P CATHERIZATION Discharge Diagnosis: post procedure nausea Activity: Per Instructions section Non-emergency contact: Primary Care Provider and [facility] Dean Call non-emergency contact if: your symptoms worsen Follow-up/Referrals: Padilla Orozco MD [Primary Care Provider] - 04/05/24 11:30 am (Hospital follow up scheduled on April 05, 2024 at 11:30am) Maggi Joseph PA-C [Physician Prototype Model Maker] - 04/03/24 10:30 am Diet: Gluten Free and Low Sodium (2gm) Addtl Attending Provider Instructions: consider a vitamin and look at its contents and see if you can consolidate your vitamins continue all previous medicines Addtl Candy Department Manager Provider Instructions: Call 911 and go to the Emergency Room if: * You have tightness or pain in your chest that does not go away with rest or Nitroglycerin * You are very short of breath even with rest Call your doctor if any of the following symptoms or problems start or get worse: * Shortness of breath or difficulty breathing * Wake up at night short of breath * Chest pain * Cough * Swelling of your hands, fee, or legs * More fatigued or tired with your normal activity * Palpitations - sudden fast heart beats WEIGHT * Weigh yourself every morning after using the bathroom. * Use the same scale. * Wear the same amount of clothing. * Write your weight down on your chart. * Call your doctor if you gain more than 2-3 pounds in 1-2 days. MEDICATIONS * Use this discharge instruction sheet for instructions. * Take your medications at the time your doctor ordered. * Do not skip a dose of your medicines. * If you miss a dose of medicine, take as soon as possible, but DO NOT DOUBLE A DOSE. * Read your medicine information when you get home. * Know all of the side effects of your medicine. * Call your doctor's office if you have any side effects. * Be sure all of your doctors know what medicine and herbs you take (including cold, flu, and herbal medicine). * Pain Medicine: If you do not get relief from your pain, please call your doctor for help. Take the following with you to your follow-up doctor appointments: * Weight Chart * Medication List * List of questions Do not drink excessive alcohol, beer or wine. Pending Studies at Discharge: Yes Stand-Alone Forms: My NPTV, Smoking Cessation Medications and DC Order Prescriptions: Continued calcium carbonate-vitamin D3 [Caltrate with Vitamin D3] 600 mg-20 mcg (800 unit) tablet 1 tab PO BID Qty: 180 6RF ibandronate 150 mg tablet 150 mg PO MONTHLY Qty: 3 3RF Rx Instructions: Clinic first thing in the morning with 8 oz water and stay upright without eating for 30 minutes mirtazapine [Remeron] 15 mg tablet 15 mg PO HS Qty: 90 1RF magnesium 250 mg tablet 250 mg PO DAILY carvedilol 3.125 mg tablet 3.125 mg PO BID Qty: 60 2RF Rx Instructions: must administer with a meal/food furosemide 20 mg tablet 20 mg PO DAILY PRN (Reason: weight gain, edema, shortness of breath) Qty: 60 2RF cyanocobalamin (vitamin B-12) [Vitamin B-12] 500 mcg Tablet 500 mcg PO QAM multivitamin tablet 1 tab PO QAM tamsulosin 0.4 mg capsule 0.4 mg PO QAM finasteride 5 mg tablet 5 mg PO QAM enalapril maleate 20 mg tablet 20 mg PO AMHS Rx Instructions: TAKE 1 TABLET, BY MOUTH, TWO TIMES A DAY. atorvastatin 20 mg tablet 20 mg PO QAM calcitriol 0.5 mcg capsule 1 mcg PO QAM apixaban 5 mg tablet 5 mg PO .CURRENTLY ON HOLD Discharge Orders: Discharge Order (Routine); Ordered 03/30/24 Ordered By: Shivam Tim Admission Data Admit Date/Time: 03/30/24 00:47 Attending Provider: Shivam Tim Admit Provider: Macy Hong Primary Care Provider: Padilla Orozco Other Providers: Macy Hong Other Interventions: Discharge Summary Assessment (RN) Last Done: 03/30/24 11:33 Hospital Stay Data Consultations 03/30/24 00:11 ED Decision to Admit Stat Diagnostic Imagining Performed 03/29/24 21:06 CT head/brain wo con Stat 03/29/24 21:07 CT abd pelvis wo con Stat Pending Results Patient Have Any Pending Studies at Discharge: Yes Discharge Instructions Given to Patient (Per Discharging Provider) consider a vitamin and look at its contents and see if you can consolidate your vitamins continue all previous medicines Total Time Total Time Spent Total Time Spent (In Minutes): It required greater than 30 minutes to prepare this patient for discharge. 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
[2024-03-30] MEDS ORDERED: MIRTAZAPINE TAB 15 MG TAB PO SCH (21:00)
== END 2024-03-30 13:47 | disposition home or self-care (01) ==
LOC: ED 20:44 → 4W 20:44 → SUATTDRO 03-30 00:45 → 4W 03-30 01:08

== ENCOUNTER 2024-04-03 16:35 | Observation (INO) ==
[2024-04-03] MEDS ORDERED: SODIUM CHLORIDE 0.9% 50 ML IV PRN (16:45)
[2024-04-03] MEDS ORDERED: SODIUM CHLORIDE 0.9% 100 ML IV PRN (16:45)
--- NOTE | 2024-04-03 16:45 | ED Triage Note ---
Date of Service April 03, 2024 Provider in Triage Author: Franchesca Ferraro History of Present Illness This patient was briefly evaluated while in triage. An abbreviated physical exam was performed. This patient is a 83-year-old Male who presents to the ED for evaluation of abnormal labs. He had a recent heart catheterization and has had some nausea and sob with exertion. Denies blood in the stools. He is on Eliquis. He had labs done today which showed worsening anemia. Patient has a defibrillator vest and they did get an alert this morning. Physical Exam GENERAL: Non-toxic and in no acute distress. HEENT: Pupils equal. No obvious scleral icterus. HEART: Irregular rhythm. LUNGS: Clear to auscultation. No accessory muscle use. NEURO: Alert and oriented. Initial orders for labs and / or imaging were placed and patient was placed in the waiting area until a bed is available. Please see further documentation for the full ED course.
[2024-04-03 17:34] LABS: Basophils # (auto) 0.03 K/uL (0.00-0.20); Basophils % (auto) 0.6 %; Eosinophils # (auto) 0.27 K/uL (0.00-0.50); Eosinophils % (auto) 5.3 %; Hematocrit (blood only) 29.4 % (42.0-52.0); Hemoglobin 9.8 g/dl (14.0-18.0); Immature Granulocytes # (auto) 0.01 K/uL (0.01-0.20); Immature Granulocytes % (auto) 0.2 %; Lymphocytes # (auto) 1.71 K/uL (1.20-3.40); Lymphocytes % (auto) 33.3 %; Mean Corpuscular Hgb Conc 33.3 g/dL (32.0-36.0); Mean Corpuscular Volume 89.9 fL (80.0-100.0); Mean Platelet Volume 11.7 fL (9.4-12.4); Monocytes # (auto) 0.47 K/uL (0.11-0.59); Monocytes % (auto) 9.1 %; Neutrophils # (auto) 2.65 K/uL (1.40-6.50); Neutrophils % (auto) 51.5 %; Platelet Count 145 K/uL (130-400); RDW Coefficient of Variation 17.8 % (11.5-14.5); RDW Standard Deviation 58.9 fL (36.4-46.3); Red Blood Count 3.27 M/uL (4.70-6.10); White Blood Count 5.14 K/ul (4.8-10.8)
--- NOTE | 2024-04-03 17:49 | Emergency Department Note ---
Impression & Plan Shortness of breath, Weakness, Hypotension, Anemia ED Provider Note NAME: ZENAIDA HAMILTON AGE: 83 SEX: M : 1940 ARRIVES VIA: Walk-In INFORMANT: Patient ED PROVIDER(S): Isai Moreno DO CHIEF COMPLAINT: abnormal lab HPI: Patient is an 83-year-old male who presents to the ER for weakness with a past medical history of CHF, heart failure, elevated troponin. Patient notes that he feels weak and rundown. This morning he was feeling short of breath. He notes his LifeVest went off and he stopped it before it shocked him. Went to cardiology and blood pressures were low in the 70s and was referred in here with abnormal blood work with a hemoglobin of 8 concern for GI bleed. He has not noticed any black or tarry stools. No chest pain or belly pain. No nausea, vomiting, or diarrhea. No dysuria, urgency, or frequency. Daughter is present at bedside and notes that she feels uncomfortable with him being at home and wants him to be admitted. ADDITIONAL HISTORY OBTAINED: Per HPI Chronic Medical/Social Conditions Affecting Care: Per HPI PAST MEDICAL HISTORY:See Below PAST SURGICAL HISTORY:See Below FAMILY HISTORY:See Below SOCIAL HISTORY:See Below HOME MEDICATIONS:See Below ALLERGIES:See Below VITALS:See Below PHYSICAL EXAMINATION: GENERAL: Sitting up in bed, alert, well appearing, well nourished, no distress, non-toxic EYE EXAM: normal conjunctiva. OROPHARYNX: no exudate, no erythema, lips, buccal mucosa, and tongue normal and mucous membranes are moist NECK: supple, no nuchal rigidity, no adenopathy, non-tender LUNGS: Clear to auscultation. Normal chest wall mechanics HEART: no murmurs, S1 normal and S2 normal ABDOMEN: abdomen soft, non-tender, normo-active bowel sounds, no masses, no rebound or guarding. BACK: Back is symmetrical on inspection and there is no deformity, no midline tenderness, no CVA tenderness. SKIN: no rashes and no bruising UPPER EXTREMITIES: upper extremities are grossly normal. LOWER EXTREMITIES: No pitting edema. NEURO EXAM: Normal sensorium, cranial nerves II-XII grossly intact, normal speech, no gross weakness of arms, no gross weakness of legs. MEDICAL DECISION MAKING: Patient is an 83-year-old male who presents ER for the above-stated complaint. IV was established and blood work was obtained. External records were reviewed from cardiology earlier today which showed blood pressures of 70. No leukocytosis and a mild anemia at 9.8 fairly consistent with his baseline. BMP with a mild hyponatremia at 131. Troponin was elevated at 40. UA was clean. Chest x-ray was unremarkable. Daughter provided additional history at bedside and notes that he was short of breath earlier today and they were sent in by cardiology and she feels uncomfortable taking him home. LifeVest did suggest a shock but never shocked as the patient stopped this. Discussed with hospitalist for further evaluation management treatment. Consults/Care Managements Discussions: Per [facility] Triage Nursing notes reviewed. Limited review of prior medical records performed Vital Signs: reviewed and remarkable for no significant abnormalities Differential diagnosis: Infection, dehydration, metabolic abnormality, hypo/hyperglycemia, electrolyte disturbance, anemia, hypoxia, cardiac sources, intracerebral event, toxicologic, neurologic, as well as other pathologies. ER treatment provided: See below Diagnostics interpreted by me include EKG and cardiac monitoring as listed below: -Cardiac Monitoring: An order was placed for continuous cardiac monitoring. The monitor shows a rate of 80 with A-fib rhythm. -ECG: A-fib rate of 76 PVCs Normal axis Septal Q waves QTc 423 -Laboratory studies:Interpreted by me as stated above in MDM and shown below. Imaging studies: Xrays: As interpreted by me: Portable AP upright 1 view of the chest shows no focal M-Trate CTs show: none Procedures:none Critical Care: None Past Med/Surg History Problem List (Updated 04/03/24 @ 21:53 by Isai Moreno DO) Anemia (Acute) Hypotension (Acute) Weakness (Acute) Shortness of breath (Acute) Hyponatremia Arrhythmia Pericardial effusion (Acute) Dizziness (Acute) Elevated troponin I level (Acute) Nausea (Acute) Chest pain (Acute) Cardiomyopathy HFrEF (heart failure with reduced ejection fraction) CHF (congestive heart failure) (Acute) Dyspnea (Acute) Elevated troponin (Acute) (HFpEF) heart failure with preserved ejection fraction CHF (congestive heart failure) Weight loss, abnormal Edema 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 BPH loc w/o ur obs/LUTS Allergic rhinitis ocas Vitamin D deficiency HTN (hypertension) Atrial fibrillation with controlled ventricular response Benign essential hypertension (Acute) BPH associated with nocturia Osteoporosis Celiac disease CAD (coronary artery disease) (Acute) Extensive coronary artery calcification noted on CTA in 2018 (negative stress ECHO in 2018) Hyperlipidemia (Acute) Metastatic basal cell carcinoma to lymph node (05/11/17) "Skin lesion on the left shoulder excised approximately 12 years ago Scar tissue excised 4 years ago Scar tissue and development of enlarged node of the left side of the neck Status post biopsy May 11, 2017 revealing basal cell carcinoma Status post FNA of left supraclavicular node revealing metastatic disease June 16, 2017 Status post excision with reconstructive flap surgery and left neck dissection July 02, 2017 Stage pT1 pN1 M0" Medical History Dermatitis herpetiformis Atrial fibrillation Newly dx'ed at [facility] appt on 01/02/21- evaluated in ER - started on Eliquis- will need cardio clearance prior to surgery (currently soonest appt 01/17/21) Hepatitis A Occurred late - treated - no current issues Cataract LEFT EYE - not ready for surgery Irregular heart beat Hypertension Asthmatic bronchitis Hx of 2019 No current breathing issues BPH with obstruction/lower urinary tract symptoms Insomnia Squamous cell carcinoma of skin Following with dermatology Surgical History History of surgical removal of lesion History of surgical removal of keloid Status post incision and drainage (12/20/20) Excision of 2 cysts on back 12/20/20 Dr. Camacho 12/20/20 History of nasal surgery History of esophagogastroduodenoscopy (EGD) History of colonoscopy History of tooth extraction History of skin surgery LEFT SHOULDER skin cancer removed Family History Brother Prostate cancer Prostate hypertrophy Acute myocardial infarction Aunt Acute myocardial infarction Uncle Acute myocardial infarction Mother Congestive heart failure Father Prostate hypertrophy Sister Breast cancer Other No family history of adverse response to anesthesia No family history of bleeding disorder Denies family history of Ovarian cancer Colorectal cancer Social History Smoking Status: Never smoker Second Hand Exposure: No; Do You Dip or Chew Tobacco: No; Hx Alcohol Use: No Hx Substance Use: No Preferred Language: Maltese Communication Ability: Effective Communication Ability Comment: Fluent in [place] Visual Impairment: Limited Hearing Ability: Normal Cardiology Nurse Practitioner Required: No Beliefs That Will Affect Care: None marital status: Current Living Situation: Family current occupational status: retired How many Children do You have: 2 Feels Safe at Home: Yes Childhood Exposure to Second-Hand Smoke: No Diet: gluten free Diet Comment: Gluten Free caffeine: Yes (coffee ) during the past year weight has: increased > 10 lbs Dental Care, Regularly: No Physical Activity Frequency: Daily Physical Activity Frequency Comment: Walking Seatbelt Use: always Sunscreen Use: No Do you think of yourself as: straight/heterosexual Gender Identity: Male Assistive Devices: None Allergies Allergies Allergy/AdvReac Type Severity Reaction Status Date / Time No Known Drug Allergies Allergy Verified 04/03/24 10:10 Home Meds Home Medications Medication Instructions Recorded Confirmed cyanocobalamin (vitamin B-12) 500 500 mcg PO QAM 12/30/20 04/03/24 mcg tablet (Vitamin B-12) multivitamin 1 tab PO QAM 12/30/20 04/03/24 magnesium 250 mg tablet 250 mg PO DAILY 07/26/23 04/03/24 atorvastatin 20 mg tablet 20 mg PO QAM 03/30/24 04/03/24 calcitriol 0.5 mcg capsule 1 mcg PO QAM 03/30/24 04/03/24 enalapril maleate 20 mg tablet 20 mg PO AMHS 03/30/24 04/03/24 finasteride 5 mg tablet 5 mg PO QAM 03/30/24 04/03/24 tamsulosin 0.4 mg capsule 0.4 mg PO QAM 03/30/24 04/03/24 apixaban 5 mg tablet 5 mg PO BID 04/03/24 04/03/24 Previous Rx's Medication Instructions Recorded calcium 600 mg (as 1 tab PO BID #180 tabs 01/13/23 carbonate)-vitamin D3 20 mcg (800 unit) tablet (Caltrate with Vitamin D3) ibandronate 150 mg tablet 150 mg PO MONTHLY #3 tabs 02/01/24 mirtazapine 15 mg tablet (Remeron) 15 mg PO HS #90 tabs 03/06/24 carvedilol 3.125 mg tablet 3.125 mg PO BID #60 tabs 03/27/24 furosemide 20 mg tablet 20 mg PO DAILY PRN weight gain, 03/27/24 edema, shortness of breath #60 tabs Results & Data (ED) Vital Signs Vital Signs - 24 hr 04/03/24 16:42 04/03/24 17:33 04/03/24 17:34 Temperature 36.6 C Temperature Source Temporal Artery Scan Pulse Rate 123 H 68 70 Pulse Rate [Apical] Pulse Rhythm Regular Pulse Rhythm [Apical] Pulse Strength [Apical] Respiratory Rate 18 18 Respiratory Effort / Characteristics Non-Labored Spontaneous Respiratory Depth Normal Respiratory Pattern Regular Blood Pressure 125/72 Blood Pressure [Right Arm] Blood Pressure Mean 89 Blood Pressure Mean [Right Arm] Blood Pressure Position Sitting Pulse Oximetry 100 100 Oxygen Delivery Method Room Air Room Air Sepsis Recent Fever Within 48 Hours No Sepsis New/Unexplained Change in Mental Status No Sepsis Action Taken by Nursing No Action Required 04/03/24 18:00 04/03/24 21:15 Temperature Temperature Source Pulse Rate 63 Pulse Rate [Apical] 74 Pulse Rhythm Pulse Rhythm [Apical] Regular Pulse Strength [Apical] Normal Respiratory Rate 18 Respiratory Effort / Characteristics Non-Labored Spontaneous Respiratory Depth Normal Respiratory Pattern Regular Blood Pressure Blood Pressure [Right Arm] 138/88 Blood Pressure Mean Blood Pressure Mean [Right Arm] 104 Blood Pressure Position Pulse Oximetry 100 Oxygen Delivery Method Room Air Sepsis Recent Fever Within 48 Hours Sepsis New/Unexplained Change in Mental Status Sepsis Action Taken by Nursing Laboratory Data 04/03/24 17:18 04/03/24 17:18 Lab Results 04/03/24 04/03/24 04/03/24 Range/Units 17:15 17:18 18:38 WBC 5.14 (4.8-10.8) K/ul RBC 3.27 L (4.70-6.10) M/uL Hgb 9.8 L (14.0-18.0) g/dl Hct 29.4 L (42.0-52.0) % MCV 89.9 (80.0-100.0) fL MCH 30.0 (25.0-34.0) pg MCHC 33.3 (32.0-36.0) g/dL RDW Std Deviation 58.9 H (36.4-46.3) fL RDW Coeff of Lizabeth 17.8 H (11.5-14.5) % Plt Count 145 (130-400) K/uL MPV 11.7 (9.4-12.4) fL Immature Gran % (Auto) 0.2 % Neut % (Auto) 51.5 % Lymph % (Auto) 33.3 % [place] % (Auto) 9.1 % Eos % (Auto) 5.3 % Baso % (Auto) 0.6 % Neut # (Auto) 2.65 (1.40-6.50) K/uL Lymph # (Auto) 1.71 (1.20-3.40) K/uL [place] # (Auto) 0.47 (0.11-0.59) K/uL Eos # (Auto) 0.27 (0.00-0.50) K/uL Baso # (Auto) 0.03 (0.00-0.20) K/uL Immature Gran # (Auto) 0.01 (0.01-0.20) K/uL Sodium 131 L (136-145) mmol/L Potassium 3.9 (3.5-5.1) mmol/L Chloride 102 (98-107) mmol/L Carbon Dioxide 22 (21-32) mmol/L Anion Gap 7 (3-11) BUN 33 H (6-23) mg/dl Creatinine 1.34 (0.6-1.4) mg/dl Est Cr Clr Drug Dosing Not Reportable eGFR 52.24 BUN/Creatinine Ratio 24.6 H (10-20) Glucose 83 (70-99(Fasting)) mg/dl Calcium 8.5 L (8.6-10.3) mg/dl Magnesium 2.0 (1.7-2.4) mg/dl Total Bilirubin 0.5 (0.2-1.0) mg/dl AST 22 (13-39) U/L ALT 23 (7-52) U/L Alkaline Phosphatase 126 H (34-104) U/L Troponin I High Sens 43.0 H (0-20) pg/ml Total Protein 10.4 H (6.0-8.3) gm/dl Albumin 3.1 L (3.4-5.0) gm/dl Globulin 7.3 H (2.5-4.0) gm/dl Albumin/Globulin Ratio 0.4 L (0.9-2) Urine Color Urine Appearance (Clear) Urine pH (4.5-7.5) Ur Specific Cannon (1.000-1.030) Urine Protein (Negative) Urine Glucose (UA) (Negative) Urine Ketones (Negative) Urine Blood (Negative) Urine Nitrite (Negative) Urine Bilirubin (Negative) Urine Urobilinogen (Negative) Ur Leukocyte Esterase (Negative) Urine WBC (Auto) (0-5) /hpf Urine RBC (Auto) (0-2) /hpf U Hyaline Cast (Auto) (0-2) /lpf U Epithel Cells (Auto) (0-2) /hpf Urine Bacteria (Auto) (None Seen) Blood Type Cancelled A Positive Antibody Screen Cancelled NEGATIVE Crossmatch See Detail See Detail 04/03/24 04/03/24 Range/Units 18:39 19:15 WBC (4.8-10.8) K/ul RBC (4.70-6.10) M/uL Hgb (14.0-18.0) g/dl Hct (42.0-52.0) % MCV (80.0-100.0) fL MCH (25.0-34.0) pg MCHC (32.0-36.0) g/dL RDW Std Deviation (36.4-46.3) fL RDW Coeff of Lizabeth (11.5-14.5) % Plt Count (130-400) K/uL MPV (9.4-12.4) fL Immature Gran % (Auto) % Neut % (Auto) % Lymph % (Auto) % [place] % (Auto) % Eos % (Auto) % Baso % (Auto) % Neut # (Auto) (1.40-6.50) K/uL Lymph # (Auto) (1.20-3.40) K/uL [place] # (Auto) (0.11-0.59) K/uL Eos # (Auto) (0.00-0.50) K/uL Baso # (Auto) (0.00-0.20) K/uL Immature Gran # (Auto) (0.01-0.20) K/uL Sodium (136-145) mmol/L Potassium (3.5-5.1) mmol/L Chloride (98-107) mmol/L Carbon Dioxide (21-32) mmol/L Anion Gap (3-11) BUN (6-23) mg/dl Creatinine (0.6-1.4) mg/dl Est Cr Clr Drug Dosing eGFR BUN/Creatinine Ratio (10-20) Glucose (70-99(Fasting)) mg/dl Calcium (8.6-10.3) mg/dl Magnesium (1.7-2.4) mg/dl Total Bilirubin (0.2-1.0) mg/dl AST (13-39) U/L ALT (7-52) U/L Alkaline Phosphatase (34-104) U/L Troponin I High Sens 36.9 H (0-20) pg/ml Total Protein (6.0-8.3) gm/dl Albumin (3.4-5.0) gm/dl Globulin (2.5-4.0) gm/dl Albumin/Globulin Ratio (0.9-2) Urine Color Yellow Urine Appearance Clear (Clear) Urine pH 5.0 (4.5-7.5) Ur Specific [place] 1.013 (1.000-1.030) Urine Protein Negative (Negative) Urine Glucose (UA) Negative (Negative) Urine Ketones Negative (Negative) Urine Blood 1+ H (Negative) Urine Nitrite Negative (Negative) Urine Bilirubin Negative (Negative) Urine Urobilinogen Negative (Negative) Ur Leukocyte Esterase Negative (Negative) Urine WBC (Auto) 0-5 (0-5) /hpf Urine RBC (Auto) 3-5 H (0-2) /hpf U Hyaline Cast (Auto) 3-5 H (0-2) /lpf U Epithel Cells (Auto) 0-2 (0-2) /hpf Urine Bacteria (Auto) None Seen (None Seen) Blood Type Antibody Screen Crossmatch Administered Medications Discontinued Medications Sodium Chloride (Nss) 500 mls @ 999 mls/hr IV .Q31M ONE Stop: 04/03/24 18:42 Last Admin: 04/03/24 19:15 Dose: 999 mls/hr Documented By: KMO Discharge Plan Visit Data Chief Complaint: Abnormal Labs/Diagnostic Testing Stated Complaint: ABN LABS/CARDIOLOGY ED Provider: Isai Moreno Discharge Problem: Shortness of breath, Weakness, Hypotension, Anemia Forms Stand Alone Forms: My [facility] Prescriptions Prescriptions: No Action calcium carbonate-vitamin D3 [Caltrate with Vitamin D3] 600 mg-20 mcg (800 unit) tablet 1 tab PO BID Qty: 180 6RF ibandronate 150 mg tablet 150 mg PO MONTHLY Qty: 3 3RF Rx Instructions: Clinic first thing in the morning with 8 oz water and stay upright without eating for 30 minutes mirtazapine [Remeron] 15 mg tablet 15 mg PO HS Qty: 90 1RF magnesium 250 mg tablet 250 mg PO DAILY carvedilol 3.125 mg tablet 3.125 mg PO BID Qty: 60 2RF Rx Instructions: must administer with a meal/food furosemide 20 mg tablet 20 mg PO DAILY PRN (Reason: weight gain, edema, shortness of breath) Qty: 60 2RF apixaban 5 mg tablet 5 mg PO BID Rx Instructions: CURRENTLY ON HOLD 03/30 cyanocobalamin (vitamin B-12) [Vitamin B-12] 500 mcg Tablet 500 mcg PO QAM multivitamin tablet 1 tab PO QAM tamsulosin 0.4 mg capsule 0.4 mg PO QAM finasteride 5 mg tablet 5 mg PO QAM enalapril maleate 20 mg tablet 20 mg PO AMHS Rx Instructions: TAKE 1 TABLET, BY MOUTH, TWO TIMES A DAY. atorvastatin 20 mg tablet 20 mg PO QAM calcitriol 0.5 mcg capsule 1 mcg PO QAM Referrals Referrals: Padilla Orozco MD [Primary Care Provider] - Discharge Problem: Hypotension Qualifiers: Hypotension type: unspecified hypotension type Qualified Code(s): I95.9 - Hypotension, unspecified
[2024-04-03 17:52] LABS: Alanine Aminotransferase 23 U/L (7-52); Albumin Globulin Ratio 0.4 (0.9-2); Albumin Level 3.1 gm/dl (3.4-5.0); Alkaline Phosphatase 126 U/L (34-104); Anion Gap 7 (3-11); Aspartate Aminotransferase 22 U/L (13-39); BUN Creatinine Ratio 24.6 (10-20); Bilirubin,Total 0.5 mg/dl (0.2-1.0); Blood Urea Nitrogen 33 mg/dl (6-23); Calcium 8.5 mg/dl (8.6-10.3); Carbon Dioxide 22 mmol/L (21-32); Chloride 102 mmol/L (98-107); Globulin 7.3 gm/dl (2.5-4.0); Glucose 83 mg/dl (70-99(Fasting)); Potassium 3.9 mmol/L (3.5-5.1); Sodium 131 mmol/L (136-145); Total Protein 10.4 gm/dl (6.0-8.3)
[2024-04-03] MEDS: SODIUM CHLORIDE 0.9% 500 ML IV ONE (19:15)
--- NOTE | 2024-04-03 19:56 | History & Physical Report ---
Date of Service April 03, 2024 Assessment & Plan (1) Arrhythmia: Plan: history of longstanding Afib (dx 2020) on Eliquis, rate-controlled LifeVest alert this AM which pt turned off prior to being shocked currently asymptomatic, VSS BMP in AM labs, Magnesium if arrhythmia other than Afib admit to telemetry for observation call pt's cardiology PA Maggi Joseph regarding LifeVest interrogation, have daughter bring in LifeVest (2) Dyspnea on exertion: Plan: currently resolved, likely related to suspected unspecified arrhythmia continue to monitor for arrhythmias, SOB monitor vital signs troponin downtrending cxr today unremarkable (3) Hypotension: Plan: currently resolved repeat BMP in AM labs continue monitoring vital signs consider orthostatic BPs (4) Hyponatremia: Plan: currently 131 BMP in AM labs monitor for arrhythmias and changes in mental status (5) Elevated BUN: Plan: with BUN:Cr ratio >20:1 suggesting possible hypovolemic status patient allowed to drink water when thirsty consider IV hydration if continues to worsen (6) HFrEF (heart failure with reduced ejection fraction): Plan: chronic, no acute exacerbation based on exam, patient likely hypovolemic to euvolemic currently EF 30-35% as of echo on 03/20/24, 25% based on cath from 03/29/24 Give carvedilol home dose tonight Holding enalapril due to hypotension, otherwise continue home HF regimen troponin downtrendin -> 36.9 (7) Cardiomyopathy: Plan: chronic per cath on 03/29/24: global hypokinesis concentric LV hypertrophy continue carvedilol 3.125mg BID, lasix 20mg daily prn (8) Atrial fibrillation with controlled ventricular response: Plan: history of longstanding Afib (dx 2020) on Eliquis 5mg BID, rate-controlled on carvedilol 3.125mg BID continue the above medications History of Present Illness Chief Complaint: SOB, LifeVest alert Primary Care Provider: Padilla Orozco MD Pavel is an 83yo male with PMHx rate-controlled Afib on Eliquis, HFrEF (25-35%), dyslipidemia, osteoporosis, and celiac sprue, accompanied by daughter (POA) Mariama presenting to the ED following cardiology appointment today with Bonnie Joseph after pt was experiencing SOB this morning at the time his LifeVest alerted him that it would shock him. BP was also low with systolic in the 70s upon standing, recommended holding enalapril at least for the next couple days, possibly decreasing dosage when resuming. Pt endorses he only had SOB, no pain and was fu lly "cognizant" during LifeVest alarm, thus he turned it off. Pt states that this is what he is supposed to do, and that it is only meant to shock him if he is unable to turn the alert off. Went to cardiology office today after calling them about LifeVest alert, was seen to have low BP with systolic in the 70s but not having SOB at that time. Maggi Opal tried to interrogate the LifeVest through its product/industry consultant, [employer], but as she was too new to the system she had not been registered. Patient not currently wearing LifeVest as daughter had brought home. Endorses compliance to home medication regimen except for Lasix (currently PRN) which pt endorses not taking for about a week. Of note, pt was seen on 03/04/24 at [facility] ED with dizziness, SOB on exertion, and LE edema. At that time, ProBNP was elevated to 4200 and pulmonary congestion was seen on CXR. Pt was discharged on Lasix 20 mg daily. On 03/27/24 pt saw Bonnie Joseph for cardiology appt- Lasix was changed to 20mg daily PRN. Diagnostic cath was recommended, which pt had done on 03/29/24 - no significant occlusion of coronary arteries was found. Most recent hospitalization was on 03/30/24 for nausea and NBNB vomiting the e vening of diagnostic catheterization. CT abdomen/pelvis showed a focal intussusception of small bowel in the RLQ which was deemed "likely transient." Cxr showed cardiomegaly but otherwise no acute chest disease. CT head did not show evidence of stroke or other intracranial abnormalities. He currently denies chest pain, SOB, dizziness, lightheadedness, palpitations, cough, fever, wheezing, headache, melena, hematochezia, or hematuria. Allergies Allergy/AdvReac Type Severity Reaction Status Date / Time No Known Drug Allergies Allergy Verified 04/03/24 10:10 Home Medications Medication Instructions Recorded Confirmed Type cyanocobalamin (vitamin B-12) 500 500 mcg PO QAM 12/30/20 04/03/24 History mcg tablet (Vitamin B-12) multivitamin 1 tab PO QAM 12/30/20 04/03/24 History calcium 600 mg (as 1 tab PO BID #180 tabs 01/13/23 04/03/24 Rx carbonate)-vitamin D3 20 mcg (800 unit) tablet (Caltrate with Vitamin D3) magnesium 250 mg tablet 250 mg PO DAILY 07/26/23 04/03/24 History ibandronate 150 mg tablet 150 mg PO MONTHLY #3 tabs 02/01/24 04/03/24 Rx mirtazapine 15 mg tablet (Remeron) 15 mg PO HS #90 tabs 03/06/24 04/03/24 Rx carvedilol 3.125 mg tablet 3.125 mg PO BID #60 tabs 03/27/24 04/03/24 Rx furosemide 20 mg tablet 20 mg PO DAILY PRN weight gain, 03/27/24 04/03/24 Rx edema, shortness of breath #60 tabs atorvastatin 20 mg tablet 20 mg PO QAM 03/30/24 04/03/24 History calcitriol 0.5 mcg capsule 1 mcg PO QAM 03/30/24 04/03/24 History enalapril maleate 20 mg tablet 20 mg PO AMHS 03/30/24 04/03/24 History finasteride 5 mg tablet 5 mg PO QAM 03/30/24 04/03/24 History tamsulosin 0.4 mg capsule 0.4 mg PO QAM 03/30/24 04/03/24 History apixaban 5 mg tablet 5 mg PO BID 04/03/24 04/03/24 History Past Med/Surg History Problem List (Updated 04/04/24 @ 00:07 by Background Daemon) Elevated BUN Anemia (Acute) Hypotension (Acute) Weakness (Acute) Shortness of breath (Acute) Hyponatremia Arrhythmia Pericardial effusion (Acute) Dizziness (Acute) Elevated troponin I level (Acute) Nausea (Acute) Chest pain (Acute) Cardiomyopathy HFrEF (heart failure with reduced ejection fraction) (HFpEF) heart failure with preserved ejection fraction CHF (congestive heart failure) Weight loss, abnormal Edema 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 BPH loc w/o ur obs/LUTS Allergic rhinitis ocas Vitamin D deficiency HTN (hypertension) Atrial fibrillation with controlled ventricular response Benign essential hypertension (Acute) BPH associated with nocturia Osteoporosis Celiac disease CAD (coronary artery disease) (Acute) Extensive coronary artery calcification noted on CTA in 2018 (negative stress ECHO in 2018) Hyperlipidemia (Acute) Metastatic basal cell carcinoma to lymph node (05/11/17) "Skin lesion on the left shoulder excised approximately 12 years ago Scar tissue excised 4 years ago Scar tissue and development of enlarged node of the left side of the neck Status post biopsy May 11, 2017 revealing basal cell carcinoma Status post FNA of left supraclavicular node revealing metastatic disease June 16, 2017 Status post excision with reconstructive flap surgery and left neck dissection July 02, 2017 Stage pT1 pN1 M0" Medical History Dermatitis herpetiformis Atrial fibrillation Newly dx'ed at [facility] appt on 01/02/21- evaluated in ER - started on Eliquis- will need cardio clearance prior to surgery (currently soonest appt 01/17/21) Hepatitis A Occurred late - treated - no current issues Cataract LEFT EYE - not ready for surgery Irregular heart beat Hypertension Asthmatic bronchitis Hx of 2019 No current breathing issues BPH with obstruction/lower urinary tract symptoms Insomnia Squamous cell carcinoma of skin Following with dermatology Surgical History History of surgical removal of lesion History of surgical removal of keloid Status post incision and drainage (12/20/20) Excision of 2 cysts on back 12/20/20 Dr. Camacho 12/20/20 History of nasal surgery History of esophagogastroduodenoscopy (EGD) History of colonoscopy History of tooth extraction History of skin surgery LEFT SHOULDER skin cancer removed Family History Brother Prostate cancer Prostate hypertrophy Acute myocardial infarction Aunt Acute myocardial infarction Uncle Acute myocardial infarction Mother Congestive heart failure Father Prostate hypertrophy Sister Breast cancer Other No family history of adverse response to anesthesia No family history of bleeding disorder Denies family history of Ovarian cancer Colorectal cancer Social History Smoking Status: Never smoker Second Hand Exposure: No; Do You Dip or Chew Tobacco: No; Hx Alcohol Use: No Hx Substance Use: No Preferred Language: Paraguayan Communication Ability: Effective Communication Ability Comment: Fluent in [place]an Visual Impairment: Limited Hearing Ability: Normal Gardening Manager Required: No Beliefs That Will Affect Care: None marital status: Current Living Situation: Spouse current occupational status: retired How many Children do You have: 2 Feels Safe at Home: Yes Childhood Exposure to Second-Hand Smoke: No Diet: gluten free Diet Comment: Gluten Free caffeine: Yes (coffee ) during the past year weight has: increased > 10 lbs Dental Care, Regularly: No Physical Activity Frequency: Daily Physical Activity Frequency Comment: Walking Seatbelt Use: always Sunscreen Use: No Do you think of yourself as: straight/heterosexual Gender Identity: Male Assistive Devices: Glasses Review of Systems Review of Systems: per HPI Physical Exam Physical Exam: constitutional: A&Ox4, appears stated age, resting comfortably in no acute distress HEENT: EOM intact, anicteric sclerae, no JVD observed Respiratory: lungs clear to auscultation b/l, no wheezes/rales/rhonchi Cardio: irregularly irregular rhythm, nontachycardic, no murmurs/rubs/gallops GI: abdomen soft, normoactive bowel sounds, nontender to palpation Neuro: no facial droop, no speech or hearing deficits, CN II-XII grossly intact MSK: no pitting edema of b/l LE Results & Data Results & Data Vital Signs (Past 12 Hours) Vital Signs Temp Pulse Pulse Resp BP BP Pulse Ox 04/03/24 18:00 74 18 138/88 100 04/03/24 17:34 70 18 100 04/03/24 17:33 68 04/03/24 16:42 36.6 C 123 H 18 125/72 100 O2 Del Method 04/03/24 18:00 Room Air 04/03/24 17:34 Room Air 04/03/24 17:33 04/03/24 16:42 Room Air Laboratory Results Abnormal lab results 04/03/24 04/03/24 04/03/24 Range/Units 17:15 17:18 18:38 RBC 3.27 L (4.70-6.10) M/uL Hgb 9.8 L (14.0-18.0) g/dl Hct 29.4 L (42.0-52.0) % RDW Std Deviation 58.9 H (36.4-46.3) fL RDW Coeff of Lizabeth 17.8 H (11.5-14.5) % Sodium 131 L (136-145) mmol/L BUN 33 H (6-23) mg/dl BUN/Creatinine Ratio 24.6 H (10-20) Calcium 8.5 L (8.6-10.3) mg/dl Alkaline Phosphatase 126 H (34-104) U/L Troponin I High Sens 43.0 H (0-20) pg/ml Total Protein 10.4 H (6.0-8.3) gm/dl Albumin 3.1 L (3.4-5.0) gm/dl Globulin 7.3 H (2.5-4.0) gm/dl Albumin/Globulin Ratio 0.4 L (0.9-2) Crossmatch See Detail See Detail 04/03/24 Range/Units 18:39 RBC (4.70-6.10) M/uL Hgb (14.0-18.0) g/dl Hct (42.0-52.0) % RDW Std Deviation (36.4-46.3) fL RDW Coeff of Lizabeth (11.5-14.5) % Sodium (136-145) mmol/L BUN (6-23) mg/dl BUN/Creatinine Ratio (10-20) Calcium (8.6-10.3) mg/dl Alkaline Phosphatase (34-104) U/L Troponin I High Sens 36.9 H (0-20) pg/ml Total Protein (6.0-8.3) gm/dl Albumin (3.4-5.0) gm/dl Globulin (2.5-4.0) gm/dl Albumin/Globulin Ratio (0.9-2) Crossmatch Supervising Physician Co-Signing Physician Notes I personally saw and examined the patient. I independently reviewed the labs, EKG, imaging, problem list, medication list, past medical history and family history. I verified all malone points and agree with resident physician Dr Serg Lindsay DO with the following exceptions and/or additions: 83 year old male presents to the ER after advice from his heart failure clinic appointment due to hypotension and Lifevest showing nearly shocking him this morning (he removed it before it could shock him). Currently he feels well at his baseline but still having some lightheadedness on standing. No chest pain or current shortness of breath. He noted shortness of breath during the potential arrhythmia this morning O/E HS RRR, no murmurs, Chest CTAB, Abdo SNT A/P Suspected arrhythmia - potentially shockable arrhythmia found on LifeVest - POA will bring in tomorrow for interrogation. Hypotension - in heart failure office today with orthostasis, hold ACEi Resident Activity Tracking Resident Involvement: Resident Care Provided Care Provided: Adult Hospital Medicine (1) Arrhythmia Arrhythmia type: unspecified cardiac arrhythmia Qualified Code(s): I49.9 - Cardiac arrhythmia, unspecified (3) Hypotension Hypotension type: unspecified hypotension type Qualified Code(s): I95.9 - Hypotension, unspecified (7) Cardiomyopathy Cardiomyopathy type: unspecified Qualified Code(s): I42.9 - Cardiomyopathy, unspecified
[2024-04-03 20:06] LABS: Appearance Urine Clear (Clear); Bacteria Urine Automated None Seen (None Seen); Bilirubin Urine Negative (Negative); Blood Urine 1+ (Negative); Color Urine Yellow; Epithelial Cell Urine Auto 0-2 /hpf (0-2); Glucose Urine UA Negative (Negative); Ketones Urine Negative (Negative); Leukocyte Esterase Urine Negative (Negative); Nitrite Urine Negative (Negative); Protein Urine Negative (Negative); Specific Gravity Urine 1.013 (1.000-1.030); Urobilinogen Urine Negative (Negative); WBC Urine Automated 0-5 /hpf (0-5)
[2024-04-03] MEDS ORDERED: ACETAMINOPHEN 325 MG TAB PO PRN (20:50)
[2024-04-03] MEDS ORDERED: ONDANSETRON INJ 2 MG/ML 2 ML VIAL IV PRN (20:50)
[2024-04-03] MEDS ORDERED: POLYETHYLENE (MIRALAX) 17 GM PACK PO PRN (20:50)
[2024-04-03] MEDS ORDERED: ALUMINUM/MAGNESIUM SUSP 30 ML UDC PO PRN (20:50)
[2024-04-04] MEDS ORDERED: FUROSEMIDE 20 MG TAB PO PRN (00:28)
[2024-04-04] MEDS: MELATONIN 3 MG TAB PO PRN (00:59)
[2024-04-04] MEDS: carvediloL 3.125 MG TAB PO SCH (00:59)
[2024-04-04] MEDS: APIXABAN 5 MG TABLET PO SCH (01:00)
[2024-04-04] MEDS: ATORVASTATIN 20 MG TAB PO SCH (08:04)
[2024-04-04] MEDS: CALCITRIOL 0.25 MCG CAPSULE PO SCH (08:04)
[2024-04-04] MEDS: MAGNESIUM OXIDE 400 MG TAB PO SCH (08:05)
[2024-04-04] MEDS: FINASTERIDE 5 MG TAB PO SCH (08:05)
[2024-04-04] MEDS: TAMSULOSIN HCL 0.4 MG CAP PO SCH (08:05)
[2024-04-04 12:06] VITALS: RESP 16; TEMP 95.5; O2SAT 98
--- NOTE | 2024-04-04 13:19 | Billing Data ---
Date of Service April 03, 2024 Coding Level of Care Code 64985 INT INP/OBS CARE
--- NOTE | 2024-04-04 13:57 | Cardiology Consultation ---
Date of Consultation April 04, 2024 Assessment & Plan (1) Chronic systolic (congestive) heart failure: -Euvolemic at this time. -Continue carvedilol. -Enalapril currently on hold. -Continue daily weights and sliding scale diuretics. -Continue salt restricted diet. (2) Nonischemic cardiomyopathy: -LVEF of 30 to 35% on recent echocardiogram. -Continue follow-up in the CHF clinic. (3) CAD (coronary artery disease): -Nonobstructive disease by cardiac catheterization March 29, 2024. (4) Atrial fibrillation, permanent: -Continue Eliquis and carvedilol. History of Present Illness Attending Physician: Rochelle Ventura MD History of Present Illness Mr. Delgadillo is an 83-year-old male admitted yesterday from the CHF clinic with complaints of dyspnea, hypotension, and anemia. This consultation was ordered to assist in his cardiac management. Of note, the patient is followed by Maggi Joseph PA-C and Dr. Harrington in the outpatient setting. The patient's recent history began back on March 22 when an echocardiogram revealed new moderate left ventricular dysfunction. The study noted an ejection fraction of 30 to 35% with global hypokinesis. There is mild right regurgitation and a small pericardial effusion. Compared with the study performed in April 2023, left ventricular dysfunction had declined. The patient underwent a cardiac catheterization on March 29 as part of his workup for his newly diagnosed cardiomyopathy. This revealed nonobstructive coronary artery disease with a 30 to 40% mid LAD, 30% ostial LCx (nondominant), 50% ostial OM1, 30% PDA, and the left trickle ejection fraction of 25%. The patient was given a LifeVest following his cardiac catheterization. This morning, the patient heard an alarm on the LifeVest suggesting it was going to fire. He disabled the defibrillation. The patient was simply walking within his home when that occurred. The vest was interrogated by the [facility] medical collections representative who noted only artifact at the time of the plan to defibrillation. Currently, patient is resting comfortably in bed and without complaints. Past medical and surgical history 1. Nonobstructive coronary artery diseaseOct2023, see above 2. Nonischemic [id number] to 35%, February 2024 3. Chronic systolic CHF 4. Permanent atrial fibrillation 5. Hypertension 6. Hypercholesterolemia 7. Celiac disease 8. Polyclonal gammopathy 9. Metastatic basal cell carcinomaDeceer 2016 10. BPH Social history and lives with his No tobacco or alcohol Family history Noncontributory Review of systems A 10 point review of systems was undertaken and negative except for that described above. Allergies Allergy/AdvReac Type Severity Reaction Status Date / Time No Known Drug Allergies Allergy Verified 04/03/24 10:10 Home Medications Medication Instructions Recorded Confirmed Type cyanocobalamin (vitamin B-12) 500 500 mcg PO QAM 12/30/20 04/03/24 History mcg tablet (Vitamin B-12) multivitamin 1 tab PO QAM 12/30/20 04/03/24 History calcium 600 mg (as 1 tab PO BID #180 tabs 01/13/23 04/03/24 Rx carbonate)-vitamin D3 20 mcg (800 unit) tablet (Caltrate with Vitamin D3) magnesium 250 mg tablet 250 mg PO DAILY 07/26/23 04/03/24 History ibandronate 150 mg tablet 150 mg PO MONTHLY #3 tabs 02/01/24 04/03/24 Rx mirtazapine 15 mg tablet (Remeron) 15 mg PO HS #90 tabs 03/06/24 04/03/24 Rx carvedilol 3.125 mg tablet 3.125 mg PO BID #60 tabs 03/27/24 04/03/24 Rx furosemide 20 mg tablet 20 mg PO DAILY PRN weight gain, 03/27/24 04/03/24 Rx edema, shortness of breath #60 tabs atorvastatin 20 mg tablet 20 mg PO QAM 03/30/24 04/03/24 History calcitriol 0.5 mcg capsule 1 mcg PO QAM 03/30/24 04/03/24 History enalapril maleate 20 mg tablet 20 mg PO AMHS 03/30/24 04/03/24 History finasteride 5 mg tablet 5 mg PO QAM 03/30/24 04/03/24 History tamsulosin 0.4 mg capsule 0.4 mg PO QAM 03/30/24 04/03/24 History apixaban 5 mg tablet 5 mg PO BID 04/03/24 04/03/24 History Patient History Medical History Dermatitis herpetiformis Atrial fibrillation Newly dx'ed at [facility] appt on 01/02/21- evaluated in ER - started on Eliquis- will need cardio clearance prior to surgery (currently soonest appt 01/17/21) Hepatitis A Occurred late - treated - no current issues Cataract LEFT EYE - not ready for surgery Irregular heart beat Hypertension Asthmatic bronchitis Hx of 2019 No current breathing issues BPH with obstruction/lower urinary tract symptoms Insomnia Squamous cell carcinoma of skin Following with dermatology Surgical History History of surgical removal of lesion History of surgical removal of keloid Status post incision and drainage (12/20/20) Excision of 2 cysts on back 12/20/20 Dr. Camacho 12/20/20 History of nasal surgery History of esophagogastroduodenoscopy (EGD) History of colonoscopy History of tooth extraction History of skin surgery LEFT SHOULDER skin cancer removed Family History Brother Prostate cancer Prostate hypertrophy Acute myocardial infarction Aunt Acute myocardial infarction Uncle Acute myocardial infarction Mother Congestive heart failure Father Prostate hypertrophy Sister Breast cancer Other No family history of adverse response to anesthesia No family history of bleeding disorder Denies family history of Ovarian cancer Colorectal cancer Social History Smoking Status: Never smoker Second Hand Exposure: No; Do You Dip or Chew Tobacco: No; Hx Alcohol Use: No Hx Substance Use: No Preferred Language: Sammarinese Communication Ability: Effective Communication Ability Comment: Fluent in Ethiopian Visual Impairment: Limited Hearing Ability: Normal Cat Swamper Required: No Beliefs That Will Affect Care: None marital status: Current Living Situation: Spouse current occupational status: retired How many Children do You have: 2 Feels Safe at Home: Yes Childhood Exposure to Second-Hand Smoke: No Diet: gluten free Diet Comment: Gluten Free caffeine: Yes (coffee ) during the past year weight has: increased > 10 lbs Dental Care, Regularly: No Physical Activity Frequency: Daily Physical Activity Frequency Comment: Walking Seatbelt Use: always Sunscreen Use: No Do you think of yourself as: straight/heterosexual Gender Identity: Male Assistive Devices: Glasses Physical Exam Physical Exam: In general is well-developed well-nourished white male in no acute distress. HEENT exam is negative. Neck is supple with full carotid upstrokes. There are no carotid bruits. Jugular venous pressure is flat at 90 degrees. There is no thyromegaly. Cardiovascular exam reveals an irregular rhythm with distant heart sounds. No obvious murmurs. Lungs are clear without rales, rhonchi or wheezes. Abdomen is soft without bruits. Extremities reveal intact radial artery pulse bilaterally. There is no peripheral edema. Results & Data Vital Signs (Past 12 Hours) Vital Signs Temp Pulse Pulse Pulse Resp BP BP 04/04/24 12:04 35.3 C L 69 16 119/77 04/04/24 10:39 36.5 C 62 18 108/69 04/04/24 07:50 04/04/24 07:49 36.4 C L 57 L 18 124/76 04/04/24 07:17 56 L 04/04/24 03:53 36.4 C L 71 18 120/70 Pulse Ox O2 Del Method 04/04/24 12:04 98 Room Air 04/04/24 10:39 97 Room Air 04/04/24 07:50 Room Air 04/04/24 07:49 98 Room Air 04/04/24 07:17 04/04/24 03:53 97 Room Air Laboratory Results CBC notes hemoglobin of 9.8, hematocrit 29.4, white count 5.1, and a platelet count 145,000. Electrolytes noted sodium 131, potassium 3.9, chloride 102, bicarb 22, BUN of 33, creatinine 1.3, and a glucose of 83. Initial high- sensitivity troponin was 43 with a follow-up value of 37. TSH is normal at 2.4. BNP is mildly elevated at 308. Diagnostic Findings EKG notes atrial fibrillation with PVCs versus aberrant beats. There is an anteroseptal VA pattern, left axis deviation, and evidence of LVH. drums teacher notes atrial fibrillation with a controlled ventricular response. Chest x-ray notes cardiomegaly but no evidence of CHF. PG Care Time/CCT Total # of Minutes Spent Total Time Spent with Patient: Total time spent is greater than 50% in coordination of care (as documented) at patient's floor/unit and/or counseling patient: Coding Level of Care Code 27048 INT INP/OBS CARE 3/75MIN Diagnoses Chronic systolic (congestive) heart failure I50.22 Nonischemic cardiomyopathy I42.8 Coronary artery disease involving [place] coronary artery of [place] heart without angina pectoris I25.10 Coronary Disease-Associated Artery/Lesion type: [place] artery [place] vs. transplanted heart: [place] heart Associated angina: without angina Atrial fibrillation, permanent I48.21 (3) CAD (coronary artery disease) Coronary Disease-Associated Artery/Lesion type: [place] artery [place] vs. transplanted heart: [place] heart Associated angina: without angina Qualified Code(s): I25.10 - Atherosclerotic heart disease of [place] coronary artery without angina pectoris
--- NOTE | 2024-04-04 14:08 | Discharge Summary ---
Date of Service April 04, 2024 Admission HPI Per Admitting Provider Pavel is an 83yo male with PMHx rate-controlled Afib on Eliquis, HFrEF (25-35%), dyslipidemia, osteoporosis, and celiac sprue, accompanied by daughter (HARITHA Leslie presenting to the ED following cardiology appointment today with Bonnie Joseph after pt was experiencing SOB this morning at the time his LifeVest alerted him that it would shock him. BP was also low with systolic in the 70s upon standing, recommended holding enalapril at least for the next couple days, possibly decreasing dosage when resuming. Pt endorses he only had SOB, no pain and was fully "cognizant" during LifeVest alarm, thus he turned it off. Pt states that this is what he is supposed to do, and that it is only meant to shock him if he is unable to turn the alert off. Went to cardiology office today after calling them about LifeVest alert, was seen to have low BP with systolic in the 70s but not having SOB at that time. Maggi Joseph tried to interrogate the LifeVest through its display designer outside, [employer], but as she was too new to the system she had not been registered. Patient not currently wearing LifeVest as daughter had brought home. Endorses compliance to home medication regimen except for Lasix (currently PRN) which pt endorses not taking for about a week. Of note, pt was seen on 03/04/24 at [facility] ED with dizziness, SOB on exertion, and LE edema. At that time, ProBNP was elevated to 4200 and pulmonary congestion was seen on CXR. Pt was discharged on Lasix 20 mg daily. On 03/27/24 pt saw Bonnie Joseph for cardiology appt- Lasix was changed to 20mg daily PRN. Diagnostic cath was recommended, which pt had done on 03/29/24 - no significant occlusion of coronary arteries was found. Most recent hospitalization was on 03/30/24 for nausea and NBNB vomiting the evening of diagnostic catheterization. CT abdomen/pelvis showed a focal intussusception of small bowel in the RLQ which was deemed "likely transient." Cxr showed cardiomegaly but otherwise no acute chest disease. CT head did not show evidence of stroke or other intracranial abnormalities. He currently denies chest pain, SOB, dizziness, lightheadedness, palpitations, cough, fever, wheezing, headache, melena, hematochezia, or hematuria. Admission Exam Per Admitting Provider constitutional: A&Ox4, appears stated age, resting comfortably in no acute distress HEENT: EOM intact, anicteric sclerae, no JVD observed Respiratory: lungs clear to auscultation b/l, no wheezes/rales/rhonchi Cardio: irregularly irregular rhythm, nontachycardic, no murmurs/rubs/gallops GI: abdomen soft, normoactive bowel sounds, nontender to palpation Neuro: no facial droop, no speech or hearing deficits, CN II-XII grossly intact MSK: no pitting edema of b/l LE Principal Diagnosis Concern for LifeVest alert. Arrhythmia has been ruled out after interrogation of device Chronic systolic congestive heart failure Nonischemic cardiomyopathy Permanent atrial fibrillation Discharge Exam General: Awake, conversant Heart: S1, S2/regular rate and rhythm, no murmur rubs or gallops Lungs: Clear to auscultation bilaterally. Normal effort Abdomen: Soft/nontender/nondistended. No hepatosplenomegaly Extremities: No clubbing/cyanosis. No edema Behavior: Appropriate, cooperative Discharge Data Allergies Allergy/AdvReac Type Severity Reaction Status Date / Time No Known Drug Allergies Allergy Verified 04/03/24 10:10 Consultations 04/03/24 18:15 ED Decision to Admit Stat 04/04/24 07:59 Consult Cardiology Routine Hospital Course (1) Arrhythmia: history of longstanding Afib (dx 2020) on Eliquis, rate-controlled LifeVest alert prompted him to come to the hospital LifeVest interrogation completed. No arrhythmia seen. Cleared for discharge by cardiology Vital signs stable Follow-up with cardiology and CHF clinic as per prior schedule (2) Dyspnea on exertion: currently resolved, likely related to suspected unspecified arrhythmia No arrhythmia on monitor No arrhythmia on LifeVest interrogation Vital signs stable troponin downtrending cxr unremarkable (3) Hypotension: currently resolved Likely related to dehydration (4) Hyponatremia: currently 131 BMP in AM labs monitor for arrhythmias and changes in mental status (5) Elevated BUN: with BUN:Cr ratio >20:1 suggesting possible hypovolemic status patient allowed to drink water when thirsty Patient appears euvolemic today (6) HFrEF (heart failure with reduced ejection fraction): chronic, no acute exacerbation based on exam, patient likely hypovolemic to euvolemic upon admission EF 30-35% as of echo on 03/20/24, 25% based on cath from 03/29/24 Give carvedilol home dose tonight Enalapril was held due to hypotension upon admission, otherwise continue home HF regimen Today blood pressure stable and the patient does not appear hypovolemic Resume enalapril and all heart failure medications troponin downtrending (7) Cardiomyopathy: chronic per cath on 03/29/24: global hypokinesis concentric LV hypertrophy continue carvedilol 3.125mg BID, lasix 20mg daily prn (8) Atrial fibrillation with controlled ventricular response: history of longstanding Afib (dx 2020) on Eliquis 5mg BID, rate-controlled on carvedilol 3.125mg BID continue the above medications Total Time Total Time Spent Total Time Spent (In Minutes): 35 Discharge Plan Discharge Items Patient Disposition: Home - Self-Care Reason For Visit: SOB ON EXERTION, LIFEVEST ALERT Discharge Diagnosis: Concern for LifeVest alert. Arrhythmia has been ruled out after interrogation of device Chronic systolic congestive heart failure Nonischemic cardiomyopathy Permanent atrial fibrillation Activity: Resume your previous activity Non-emergency contact: Primary Care Provider Call non-emergency contact if: you have any medication questions and your symptoms worsen Follow-up/Referrals: Cristi Harrington MD [Physician] - Padilla Orozco MD [Primary Care Provider] - 04/05/24 11:30 am Maggi Joseph PA-C [Physician Branch Coordinator] - 04/10/24 3:30 pm Diet: Heart Healthy and Low Sodium (2gm) Addtl Attending Provider Instructions: Advised to follow-up with PCP in 1 week Advised to follow-up with CHF clinic and flight operations engineer as per schedule Pending Studies at Discharge: No Stand-Alone Forms: My [employer] Medications and DC Order Prescriptions: Continued calcium carbonate-vitamin D3 [Caltrate with Vitamin D3] 600 mg-20 mcg (800 unit) tablet 1 tab PO BID Qty: 180 6RF ibandronate 150 mg tablet 150 mg PO MONTHLY Qty: 3 3RF Rx Instructions: Clinic first thing in the morning with 8 oz water and stay upright without eating for 30 minutes mirtazapine [Remeron] 15 mg tablet 15 mg PO HS Qty: 90 1RF magnesium 250 mg tablet 250 mg PO DAILY carvedilol 3.125 mg tablet 3.125 mg PO BID Qty: 60 2RF Rx Instructions: must administer with a meal/food furosemide 20 mg tablet 20 mg PO DAILY PRN (Reason: weight gain, edema, shortness of breath) Qty: 60 2RF apixaban 5 mg tablet 5 mg PO BID Rx Instructions: CURRENTLY ON HOLD 03/30 cyanocobalamin (vitamin B-12) [Vitamin B-12] 500 mcg Tablet 500 mcg PO QAM multivitamin tablet 1 tab PO QAM tamsulosin 0.4 mg capsule 0.4 mg PO QAM finasteride 5 mg tablet 5 mg PO QAM enalapril maleate 20 mg tablet 20 mg PO AMHS Rx Instructions: TAKE 1 TABLET, BY MOUTH, TWO TIMES A DAY. atorvastatin 20 mg tablet 20 mg PO QAM calcitriol 0.5 mcg capsule 1 mcg PO QAM Discharge Orders: Discharge Order (Routine); Ordered 04/04/24 Ordered By: Rochelle Ruiz/Other Patient Handouts: What Is Heart Failure Admission Data Admit Date/Time: 04/03/24 20:50 Attending Provider: Rochelle Ventura Admit Provider: Serg Lindsay V. Primary Care Provider: Padilla Orozco Other Providers: Modesto Navas; Cristi Harrington
--- NOTE | 2024-04-04 14:17 | Electrocardiogram Report ---
Test Reason : Blood Pressure : */* mmHG Vent. Rate : 76 BPM Atrial Rate : * BPM P-R Int : * ms QRS Dur : 100 ms QT Int : 376 ms P-R-T Axes : * -33 19 degrees QTcB Int : 423 ms Atrial fibrillation with premature ventricular or aberrantly conducted complexes Left axis deviation Minimal voltage criteria for LVH, may be normal variant Septal infarct (cited on or before 02-Jan-2021) Abnormal ECG When compared with ECG of 30-Mar-2024 05:26, No significant change was found Confirmed by Wilver Dominique ([id number]) on 04/04/2024 2:16:27 PM Referred By: Maggi Joseph Confirmed By: Wilver Dominique
[2024-04-04 15:37] VITALS: BP 108/69; PULSE 62
--- NOTE | 2024-04-04 17:21 | XRay Report ---
Exam(s): XR CXR 1 VIEW EXAM: XR Chest, 1 View CLINICAL HISTORY: weakness. TECHNIQUE: Frontal view of the chest. COMPARISON: Portable chest single view 03/29/2024 FINDINGS: Lungs: No focal airspace consolidation identified. The pulmonary vasculature is unremarkable. Incidental calcified granulomas involving the inferolateral right lower lung zone. Pleural space: Unremarkable. No pneumothorax. No large pleural effusion. Heart: Unremarkable. No cardiomegaly. Mediastinum: Mediastinal contours are stable and unremarkable. The trachea is midline. Bones/joints: Unremarkable. No acute fracture. IMPRESSION: No focal consolidation or acute cardiopulmonary process identified. Electronically signed by: Stalin Strong MD 04/03/24 20:06 PM
[2024-04-04] MEDS ORDERED: MIRTAZAPINE TAB 15 MG TAB PO SCH (21:00)
== END 2024-04-04 15:37 | disposition home or self-care (01) ==
LOC: ED 16:35 → 2N 16:35 → SUATTDRO 20:50 → 2N 23:50